=== PATIENT | female | born 1950 | race Caucasian/White ===

== ENCOUNTER 2018-02-22 02:32 | Inpatient (IN) ==
[2018-02-22 03:07] LABS: Basophils % 0.3 %; Eosinophils # 0.1 K/mcL (0.0-0.6); Eosinophils % 0.7 %; Hematocrit 43.2 % (35.3-44.9); Hemoglobin 14.9 g/dL (11.5-15.4); Immature Granulocytes % 0.3 % (0-4); Lymphocytes # 1.9 K/mcL (0.6-4.6); Lymphocytes % 16.3 %; Mean Corpuscular HGB Conc 34.5 g/dL (31.6-35.5); Mean Corpuscular Hemoglobin 28.8 pg (28.0-33.3); Mean Corpuscular Volume 83.4 fL (83.0-100.0); Mean Platelet Volume 11.5 fL (9.4-12.4); Monocytes # 0.7 K/mcL (0.0-1.3); Monocytes % 5.8 %; Neutrophils # 8.9 K/mcL (1.6-8.9); Platelet Count 324 K/mcL (140-400); Red Blood Count 5.18 M/mcL (3.82-4.97); Red Cell Distribution Width 12.3 % (11.5-14.5); Segmented Neutrophils % 76.6 %
[2018-02-22 03:13] LABS: Prothrombin Time 11.1 Seconds (9.4-12.1)
--- NOTE | 2018-02-22 03:22 | Emergency Department Note ---
Disposition Clinical Impression: NSTEMI (non-ST elevated myocardial infarction) Disposition: Admitted As Inpatient Condition: Fair Chest Pain HPI - General Chief Complaint: ED Chest Pain Stated Complaint: CP Time Seen by Provider: 02/22/18 03:10 Source: patient, family Limitations: no limitations Vital Signs Reviewed: Yes Nursing Notes Reviewed: Yes - History of Present Illness HPI Narrative: Mrs. Pinedo, 67-year-old female, presents from home for evaluation of chest pain. This started 3 days ago when she was laying down to go to bed. She describes a rapid beating of her heart and a weakness to her bilateral upper extremities as well as tightness in her jaw. She is not certain how long this lasted however did self resolve without intervention. This recurred last night and again recurred tonight; each time when laying in bed. She has no symptoms with activity. PMH: Hypertension, hyperlipidemia, diabetes. No history of ACS. ROS: Positive: As above Negative: Fever, chills, nausea, vomiting, dyspnea, diaphoresis, cough, abdominal pain, unusual back pain Severity scale (1-10): 2 - Related Data Home Medications Medication Instructions Recorded Confirmed Lisinopril [Zestril] 05/02/17 Previous Rx's Medication Instructions Recorded Ibuprofen [Motrin] 800 mg PO Q8HR #30 tablet 05/02/17 Tramadol HCl [Ultram] 50 mg PO TID PRN #15 tab 05/02/17 Allergies Allergy/AdvReac Type Severity Reaction Status Date / Time No Known Allergies Allergy Verified 02/22/18 02:41 All systems ED: reviewed and negative except as stated. Review of Systems: As Per HPI Chest Pain PMH - Past Medical History Medical history: Reports: diabetes, hyperlipidemia, hypertension Surgical history: Reports: no surgical history Psychiatric history: Reports: no psych history - Social History Smoking Status: Never smoker Alcohol use: Reports: none Drug use: Reports: none Physical Exam Vital Signs Reviewed General: Patient is alert, oriented, and in no acute distress. Head: atraumatic, normocephalic Eye: normal appearance, no scleral icterus, no conjunctival injection ENT: mucous membranes moist, normal external ear exam Neck: normal inspection, trachea midline, full ROM Chest: normal inspection, symmetric chest rise Respiratory: Good respiratory effort. Bilateral breath sounds are clear without wheezing, crackles, or rhonchi. Cardiovascular: Regular rate and rhythm. No clicks, rubs, gallops, or murmors. Normal heart sounds. Bilateral radial pulses 2/4 equal. Abdomen: Bowel sounds present normoactive x-4 quadrants. Abdomen is soft, nondistended, and nontender. No guarding or rebound. No organomegaly noted. Musculoskeletal: Spontaneously moving all extremities. Skin: warm, dry, intact. Neuro: Alert and oriented x4. Sensation light touch intact. Psych: Patient's affect is appropriate for situation. - General Limitations: no limitations General appearance: alert, in no apparent distress Course Course Narrative: EKG dated 02/22/18 at 02:38 interpreted as sinus rhythm with rate of 88. ID [id number] , QRS 78, QTc 401. Left axis. Nonspecific ST-T changes. No previous EKG for comparison. Chest X-Ray 02/22/18 02:44 IMPRESSION: No acute findings. D/ / Dario Cristina / Dario Cristina Interpreting Provider: Dario Cristina Vital Signs Temperature 98.2 F 02/22/18 02:41 Pulse Rate 83 02/22/18 02:41 Respiratory Rate 16 02/22/18 02:41 Blood Pressure 172/94 02/22/18 02:41 O2 Sat by Pulse Oximetry 97 02/22/18 02:41 Temperature 98.2 F 02/22/18 02:41 Pulse Rate 83 02/22/18 02:41 Respiratory Rate 16 02/22/18 02:41 Blood Pressure 172/94 02/22/18 02:41 O2 Sat by Pulse Oximetry 97 02/22/18 02:41 Oxygen Delivery Oxygen Delivery Room Air Chest Pain - Lab Data Result diagrams: 02/22/18 02:56 02/22/18 02:56 Lab Results 02/22/18 02/22/18 02/22/18 Range/Units 02:56 02:56 02:56 WBC 11.6 H (4.3-11.1) K/mcL RBC 5.18 H (3.82-4.97) M/mcL Hgb 14.9 (11.5-15.4) g/dL Hct 43.2 (35.3-44.9) % MCV 83.4 (83.0-100.0) fL MCH 28.8 (28.0-33.3) pg MCHC 34.5 (31.6-35.5) g/dL RDW 12.3 (11.5-14.5) % Plt Count 324 (140-400) K/mcL MPV 11.5 (9.4-12.4) fL Immature Gran % 0.3 (0-4) % Seg Neutrophils % 76.6 % Lymphocytes % 16.3 % Monocytes % 5.8 % Eosinophils % 0.7 % Basophils % 0.3 % Neutrophils # 8.9 (1.6-8.9) K/mcL Lymphocytes # 1.9 (0.6-4.6) K/mcL Monocytes # 0.7 (0.0-1.3) K/mcL Eosinophils # 0.1 (0.0-0.6) K/mcL Basophils # 0.0 (0.0-0.2) K/mcL PT 11.1 (9.4-12.1) Seconds INR 1.0 APTT 35.0 (26.0-36.0) Seconds Sodium 133 L (136-145) mEq/L Potassium 4.1 (3.5-5.1) mEq/L Chloride 100 (98-107) mEq/L Carbon Dioxide 18 L (23-29) mEq/L BUN 18 (8-23) mg/dL Creatinine 0.82 (0.60-1.20) mg/dL Est GFR ( Amer) > 60 (> 60) Est GFR (Non-Af Amer) > 60 (> 60) BUN/Creatinine Ratio 22 (6-26) Glucose 396 H (70-105) mg/dL Calculated Osmolality 294 (280-300) Calcium 9.4 (8.6-10.3) mg/dL Troponin I 1.41 H* (< 0.04) ng/mL Heart Score - Score History: Slightly Suspicious EKG: Non Specific repolarisation Disturbance Age: 45-65 Risk Factors: Equal/Greater than 3 risk factor or history of atherosclerotic disease Troponin: Less than normal limit HEART Score Total: 4
[2018-02-22 03:29] LABS: BUN/Creatinine Ratio 22 (6-26); Blood Urea Nitrogen 18 mg/dL (8-23); Calcium 9.4 mg/dL (8.6-10.3); Carbon Dioxide 18 mEq/L (23-29); Chloride 100 mEq/L (98-107); Glucose 396 mg/dL (70-105); Osmolality,Calculated 294 (280-300); Potassium 4.1 mEq/L (3.5-5.1); Sodium 133 mEq/L (136-145); eGFR For African Americans > 60 (> 60); eGFR For Non-African Americans > 60 (> 60)
[2018-02-22 03:31] LABS: Troponin I 1.41 ng/mL (< 0.04)
--- NOTE | 2018-02-22 03:37 | Emergency Department Note ---
Disposition Clinical Impression: NSTEMI (non-ST elevated myocardial infarction) Disposition: Admitted As Inpatient Condition: Fair Referrals: La eKnny [Primary Care Provider] - Forms: ED Satisfaction Letter General Adult HPI - General Chief complaint: ED Chest Pain Stated complaint: CP Time Seen by Provider: 02/22/18 03:10 Source: patient, family Limitations: no limitations - History of Present Illness Pain Scale: 2 - Related Data Home Medications Medication Instructions Recorded Confirmed Lisinopril [Zestril] 05/02/17 Previous Rx's Medication Instructions Recorded Ibuprofen [Motrin] 800 mg PO Q8HR #30 tablet 05/02/17 Tramadol HCl [Ultram] 50 mg PO TID PRN #15 tab 05/02/17 Allergies Allergy/AdvReac Type Severity Reaction Status Date / Time No Known Allergies Allergy Verified 02/22/18 02:41 Past Medical History - Past Medical History Medical history: Reports: diabetes, hyperlipidemia, hypertension Surgical history: Reports: no surgical history Psychiatric history: Reports: no psych history - Social History Smoking Status: Never smoker Smokeless Tobacco Status: No Alcohol use: Reports: none Drug use: Reports: none Physical Exam - General Limitations: no limitations General appearance: alert, in no apparent distress Course - Reevaluation(s) Reevaluation #1: Attestation note I examined this patient and my medical decision-making was reviewed with the emergency medicine resident. I agree with the documented findings, disposition and treatment plan as described except to the extent set forth below. Patient seen with emergency medicine resident Mukesh Ross, Please see a copy of his note for details of the H&P, ED evaluation, management and disposition. I have independently evaluated the patient and confirmed appropriate portions of the history and physical exam. Briefly: 67-year-old female comes in with chest pain that radiated into her shoulders no known prior coronary artery disease EKG shows no acute ischemic changes were troponin critically elevated 1.41 with normal BUN/creatinine consistent with an NSTEMI. Patient will be anticoagulated and admitted with cardiology consultation. Provided 45 minutes critical care service with this patient Time: 03:36 Vital Signs Temperature 98.2 F 02/22/18 02:41 Pulse Rate 83 02/22/18 02:41 Respiratory Rate 16 02/22/18 02:41 Blood Pressure 172/94 02/22/18 02:41 O2 Sat by Pulse Oximetry 97 02/22/18 02:41 Temperature 98.2 F 02/22/18 02:41 Pulse Rate 83 02/22/18 02:41 Respiratory Rate 16 02/22/18 02:41 Blood Pressure 172/94 02/22/18 02:41 O2 Sat by Pulse Oximetry 97 02/22/18 02:41 Oxygen Delivery Oxygen Delivery Room Air Medical Decision Making - Lab Data Result diagrams: 02/22/18 02:56 02/22/18 02:56 Lab Results 02/22/18 02/22/18 02/22/18 Range/Units 02:56 02:56 02:56 WBC 11.6 H (4.3-11.1) K/mcL RBC 5.18 H (3.82-4.97) M/mcL Hgb 14.9 (11.5-15.4) g/dL Hct 43.2 (35.3-44.9) % MCV 83.4 (83.0-100.0) fL MCH 28.8 (28.0-33.3) pg MCHC 34.5 (31.6-35.5) g/dL RDW 12.3 (11.5-14.5) % Plt Count 324 (140-400) K/mcL MPV 11.5 (9.4-12.4) fL Immature Gran % 0.3 (0-4) % Seg Neutrophils % 76.6 % Lymphocytes % 16.3 % Monocytes % 5.8 % Eosinophils % 0.7 % Basophils % 0.3 % Neutrophils # 8.9 (1.6-8.9) K/mcL Lymphocytes # 1.9 (0.6-4.6) K/mcL Monocytes # 0.7 (0.0-1.3) K/mcL Eosinophils # 0.1 (0.0-0.6) K/mcL Basophils # 0.0 (0.0-0.2) K/mcL PT 11.1 (9.4-12.1) Seconds INR 1.0 APTT 35.0 (26.0-36.0) Seconds Sodium 133 L (136-145) mEq/L Potassium 4.1 (3.5-5.1) mEq/L Chloride 100 (98-107) mEq/L Carbon Dioxide 18 L (23-29) mEq/L BUN 18 (8-23) mg/dL Creatinine 0.82 (0.60-1.20) mg/dL Est GFR ( Amer) > 60 (> 60) Est GFR (Non-Af Amer) > 60 (> 60) BUN/Creatinine Ratio 22 (6-26) Glucose 396 H (70-105) mg/dL Calculated Osmolality 294 (280-300) Calcium 9.4 (8.6-10.3) mg/dL Troponin I 1.41 H* (< 0.04) ng/mL
[2018-02-22] MEDS ORDERED: Aspirin 325 MG TABLET PO ONE (03:42)
[2018-02-22] MEDS ORDERED: *HR* Heparin 5,000 UNIT/ML VIAL IVP PRN ×2 (03:44)
[2018-02-22] MEDS ORDERED: *HR* Heparin 5,000 UNIT/ML VIAL IVP ONE (03:44)
[2018-02-22] MEDS ORDERED: Nitroglycerin 0.4 MG TAB.SUBL SL PRN (04:35)
[2018-02-22] MEDS ORDERED: *HR* Labetalol 20 MG/4 ML SYRINGE IVP STA (05:11)
[2018-02-22] MEDS: Heparin 25,000 UNIT/500 ML D5W 25,000 UNIT/500 ML BAG IVC SCH (05:26)
[2018-02-22] MEDS ORDERED: *HR* Dextrose 50 % in Water (Syg) 50 ML SYRINGE IVP PRN (07:47)
[2018-02-22] MEDS ORDERED: D5% in Water 1,000 ML IVC PRN (07:47)
[2018-02-22] MEDS ORDERED: Dextrose Gel 15 GM/37.5 ML TUBE PO PRN ×2 (07:47)
[2018-02-22] MEDS: Insulin LISPRO 300 UNITS/3 ML VIAL SQ SCH ×5 (08:50→23:30)
[2018-02-22] MEDS: Furosemide 20 MG TABLET PO SCH (08:53)
[2018-02-22] MEDS: amLODIPine 5 MG TABLET PO SCH (08:53)
[2018-02-22] MEDS ORDERED: Ondansetron 4 MG/2 ML VIAL IVP PRN (09:12)
[2018-02-22] MEDS ORDERED: *HR* Morphine 2 MG/ML SYRINGE IVP PRN (09:12)
--- NOTE | 2018-02-22 09:23 | Internal Med History&Physical ---
Date of Encounter: 02/22/18 Time of Encounter: 08:17 Internal Medicine - H&P: HPI Chief complaint: "Chest pain" Admitted From: Emergency Dept Plans for Post Hospital Care: Home History of present illness: Ms. Pinedo is a 67 year old female who presented to ED today with 4-day history of chest pain. She states that pain started this past Saturday when she layed down for bed at night. Pain has been intermittent since then, usually worse in bed a night. Pain is located in left to middle chest, and radiates to bilateral arms and jaw. She denies diaphoresis. She denies fever, chills, SOB , nausea, vomiting, abdominal pain, changes in bladder, or changes in bowels. She has history of Type II DM, HTN, and HLD. She denies any CAD or other cardiac history. In the ED, troponin was elevated to 1.41. EKG with non-specific changes and no ST elevation. Blood glucose was elevated to 396, but she did not have her home insulin for today. CXR showed no acute cardiopulmonary process. She was given aspirin and labetalol for HTN in ED. She was started on heparin drip. At the time of my examination, chest pain was greatly improved but still present. She has no other complaints at this time. Past Med Surg Social Fam HX - Past Medical History Attestation: Yes The following information was validated with the patient. Source: patient Medical history: diabetes, hyperlipidemia, hypertension Psychiatric history: no psych history - Past Surgical History Surgical History: no surgical history - Social History Smoking Status: Never smoker Smokeless Tobacco Status: No Alcohol use: none Drug use: none - Additional Family History Additional family history: No significant family history per patient. Internal Medicine - H&P: Meds Amlodipine Besylate 10 mg PO DAILY 02/22/18 [History] Furosemide [Lasix] 20 mg PO DAILY 02/22/18 [History] Glyburide/Metformin HCl [Glyburide-Metformin 5-500 mg] 1 tab PO BID 02/22/18 [ History] Insulin Glargine [Lantus] 15 units SQ DAILY 02/22/18 [History] Insulin Glargine [Lantus] 30 units SQ HS 02/22/18 [History] Losartan [Cozaar] 100 mg PO DAILY 02/22/18 [History] Metoprolol [Lopressor] 50 mg PO BID 02/22/18 [History] Pioglitazone HCl [Actos] 45 mg PO DAILY 02/22/18 [History] Potassium Chloride [K-Tab ER] 10 meq PO BID 02/22/18 [History] Simvastatin [Zocor] 20 mg PO HS 02/22/18 [History] 3 Allergy/AdvReac Type Severity Reaction Status Date / Time No Known Allergies Allergy Verified 02/22/18 02:41 All Systems PM: A 10-system review of systems was performed and is negative for pertinent findings except as documented above in the HPI. - Constitutional Vitals: Temp Pulse Resp BP Pulse Ox 98.2 F 88 18 172/90 97 02/22/18 02:41 02/22/18 06:39 02/22/18 06:39 02/22/18 06:39 02/22/18 06:39 General appearance: Present: cooperative, A&O X 3, pleasant, no acute distress, answers questions appropriately - Head Head exam: Present: atraumatic, normal inspection, normocephalic - Eye Eye exam: Present: EOMI, PERRL. Absent: conjunctival injection, nystagmus, scleral icterus - ENT ENT exam: Present: mucous membranes moist, normal external ear exam, normal oropharynx - Neck Neck exam general surgery: Present: supple, trachea midline. Absent: lymphadenopathy, tenderness, thyromegaly - Respiratory Respiratory exam: Present: CTAB. Absent: accessory muscle use, rales, rhonchi, wheezes Additional comments: Normal WOB - Cardiovascular Cardiovascular exam: Present: RRR, +S1, +S2. Absent: diastolic murmur, gallop, rubs, systolic murmur Additional comments: Trace BLE edema - GI/Abdominal GI/Abdominal exam: Present: normal bowel sounds, soft. Absent: distended, hepatomegaly, mass, splenomegaly, tenderness - Neurological Exam Neurological exam: Present: alert, CN II-XII intact, oriented X3, no focal deficits, strengths equal and symetr throughout. Absent: motor sensory deficit , facial droop, speech deficit - Psychiatric Psychiatric exam: Present: normal affect, normal mood. Absent: agitated, anxious, depressed - Skin Skin exam: Present: dry, intact, warm. Absent: cyanosis, rash Internal Med - H&P Results - Labs CBC & Chem 7: 02/22/18 02:56 02/22/18 02:56 - Assessment and plan (1) NSTEMI (non-ST elevated myocardial infarction) Current Visit: Yes Status: Acute Assessment and plan: Admit to inpatient with telemetry. Cardiology consulted; appreciate input. Trend troponin x 3. Continue heparin drip. Continue aspirin QD. Continue supplemental O2, tylenol, and IV morphine PRN. Continue SL nitro PRN. Continue home HTN and HLD medications as per below. Obtain ECHO. Check lipid panel as per below. Keep NPO until cardiology decides on intervention. Repeat labwork in AM. (2) Type 2 diabetes mellitus with hyperglycemia Current Visit: Yes Status: Acute Assessment and plan: Start accuchecks and high dose SSI Q4H. Add back home long-acting insulin after on diet. 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 Qualifiers: Hypertension type: essential hypertension Qualified Code(s): I10 - Essential (primary) hypertension (4) HLD (hyperlipidemia) Current Visit: Yes Status: Chronic Assessment and plan: Recheck lipid panel. Continue home medications. Qualifiers: Hyperlipidemia type: mixed hyperlipidemia Qualified Code(s): E78.2 - Mixed hyperlipidemia (5) DVT prophylaxis Current Visit: Yes Status: Acute Assessment and plan: Continue heparin drip as per above and start SCDs. - Time Spent With Patient Total time spent is greater than 50% in coordination of care (as documented) at patient's floor/unit and/or counseling patient: less than 15 minutes
[2018-02-22 09:41] LABS: Troponin I 2.68 ng/mL (< 0.04)
[2018-02-22] MEDS ORDERED: Heparin 1,000 UNITS/500 mL 500 ML ONE (10:32)
[2018-02-22] MEDS ORDERED: ISOVUE-370 200 ML INFUS..BTL IV ONE (10:32)
[2018-02-22] MEDS ORDERED: 0.9 % Sodium Chloride 1,000 ML ONE ×2 (10:32→10:41)
[2018-02-22] MEDS ORDERED: *HR* Heparin 10,000 UNIT/10 ML VIAL ONE (10:32)
[2018-02-22] MEDS ORDERED: Nitroglycerin 1,000 MCG/10 ML VIAL IV ONE (10:33)
--- NOTE | 2018-02-22 10:53 | Pre-Sedation Evaluation ---
Pre-sedation evaluation - Pre-sedation checklist Date of procedure: 02/22/18 Procedure: C Recent Vitals: Last Vital Signs Temp 98.2 F 02/22/18 02:41 Pulse 88 02/22/18 06:39 Resp 18 02/22/18 06:39 BP 172/90 02/22/18 06:39 Pulse Ox 97 02/22/18 06:39 H&P (including ROS) documented in medical record: Yes Dietary Status: NPO after Midnight ASA Classification *see protocol: CLASS II-Mild systemic disease, CLASS III- Severe systemic disease
--- NOTE | 2018-02-22 10:56 | Cardiology Consult Note ---
Date of Encounter: 02/22/18 Time of Encounter: 10:54 Assessment and Plan (1) NSTEMI (non-ST elevated myocardial infarction) Current Visit: Yes Status: Acute NSTEMI, R/B/A of a [facility] d/w patient and she agrees to proceed. Discussion w patient/family: The assessment and plan as outlined above was discussed with the patient and/or family members who expressed understanding and agreement. All questions were answered. Thank you for involving us in the care of your patient. Please call with any questions. History of Present Illness Consult date: 02/22/18 Consult reason: NSTEMI Chief complaint: Chest Pain History of present illness: Ms. Pinedo is a 67 year old female with h/o DM, HTN complains of typical chest pain RSCP, heavy recently with exertion radiating to UE's and jaw found to have an elevated troponin. Currently chest pain free doing well on IV heparin. EKG with ST changes Past Med Surg Social Fam HX - Past Medical History Medical history: diabetes, hyperlipidemia, hypertension Psychiatric history: no psych history - Past Surgical History Surgical History: no surgical history - Social History Smoking Status: Never smoker Smokeless Tobacco Status: No Alcohol use: none Drug use: none Medications and Allergies Furosemide [Lasix] 20 mg PO DAILY 02/22/18 [History] Glyburide/Metformin HCl [Glyburide-Metformin 5-500 mg] 1 tab PO BID 02/22/18 [ History] Insulin Glargine [Lantus] 15 units SQ DAILY 02/22/18 [History] Insulin Glargine [Lantus] 30 units SQ HS 02/22/18 [History] Losartan [Cozaar] 100 mg PO DAILY 02/22/18 [History] Metoprolol Succinate [Toprol Xl] 50 mg PO BID 02/22/18 [History] Pioglitazone HCl [Actos] 45 mg PO DAILY 02/22/18 [History] Potassium Chloride [K-Tab ER] 10 meq PO BID 02/22/18 [History] Simvastatin [Zocor] 20 mg PO HS 02/22/18 [History] amLODIPine [Norvasc] 5 mg PO DAILY 02/22/18 [History] 3 Allergy/AdvReac Type Severity Reaction Status Date / Time No Known Allergies Allergy Verified 02/22/18 02:41 All Systems Review: The remainder of the systems were reviewed and are negative Physical Examination General: Conversant, No Apparent Distress HEENT: Atraumatic, Normocephaly, Mucus Membranes Moist Neck: No JVD, Normal carotid pulses Cardiac: Reg Rate and Rhythm, Normal S1 and S2, No Murmur Lungs: Normal Breath Sounds, No Wheeze, Rales, Rhonchi Neuro: Alert and responsive, No focal deficits noted Abdomen: Soft, Non-Tender Skin: No rashes noted on visualized skin Musculoskeletal: No Chest Wall Tenderness Extremities: No Clubbing, No Cyanosis, No Edema, Normal Pulses Results 02/22/18 02:56 02/22/18 02:56 Lab Results 02/22/18 08:58 Troponin I 2.68 H* Consult Discharge Plan - Plan Referrals: La Kenny [Primary Care Provider] -
[2018-02-22] MEDS ORDERED: *HR* Midazolam HCl 2 MG/2 ML VIAL ONE (11:04)
[2018-02-22] MEDS ORDERED: *HR* FentaNYL (PF) 100 MCG/2 ML VIAL ONE (11:04)
[2018-02-22] MEDS ORDERED: Nitroglycerin Spray 4.9 GM BOTTLE ONE (11:48)
[2018-02-22 11:54] LABS: Estimated Average Glucose 235 mg/dl; Hemoglobin A1C 9.8 %
--- NOTE | 2018-02-22 12:05 | Invasive Diagnostic Lab Proc ---
Name: Randi Pinedo Date of Study: 02/22/2018 Date: 1950 Ht: 70.1in Medical Record#: [id number] Age: 67 Wt: 227.96lb Gender: Female BSA: 2.21 Order #: [id number] BMI: 32.63 Physicians Procedure Physician: Amee Alexander MD Referring MD: Referring MD: Staff Name Position [facility] Monitor 11:01 AM Nicky Liang RN Labeling Specialist 11:02 AM Fadia Schuster RN Labeling Specialist 11:02 AM Felicia Scruggs RT (R) Scrub 11:02 AM Indications Indication Non-Stemi Procedures Performed Procedure L HRT ARTERY/VENTRICLE ANGIO Pre-Procedure Checklist Informed consent is complete signed and on chart. H&P is on chart. ID band is on and ID verified with patient. Patient NPO for procedure The procedure was described for the patient and questions were answered. Blood Pressure: 172/90 ECG is on chart. Rhythm: NSR Plan of Care Patient will tolerate the procedure without complications. Adequate level of comfort will be maintained. Hemodynamics will remain stable Patient will recover from procedure without complications. Respiratory function will be maintained. Cardiac rhythm will remain stable. Patient temperature will be maintained. Patient and/or family have verbalized understanding of the procedure. Patient Education Chief Complaint/Reason for Test: Cardiac Cath Developmental Category: Geriatric (65+ years) Developmentally Appropriate for Age: Yes Learning Barriers: None Education Needs: Procedure Education Method: Verbal Information Taught: Cardiac Cath Educational Evaluation: Able to repeat information Intravenous Access Time IV Size Location DC'd Fluid/Drip Rate Units RN 10:47 AM 20g 1 /" Patent On Arrival Lt Antecubital 0.9NaCl 25 ml/hr Nicky Liang RN Allergies No Known Allergies Vital Signs Time BP (mmHg) HR (bpm) O2 Sat. RR (bpm) LOC 10:49 AM 172 / 90 88 97 % 18 5 = Fully awake and oriented or at pre-proc level 11:02 AM / % 4 = Oriented but drowsy 11:02 AM / % 4 = Oriented but drowsy 11:17 AM / % 4 = Oriented but drowsy 11:32 AM / % 4 = Oriented but drowsy 11:08 AM 163 / 84 77 96 % 11:12 AM 158 / 84 74 92 % 11:17 AM 150 / 78 73 92 % 11:22 AM 154 / 75 73 94 % 11:27 AM 155 / 76 74 93 % 11:32 AM 154 / 78 73 94 % 11:37 AM 158 / 79 72 93 % 11:42 AM 157 / 81 72 93 % 11:47 AM 154 / 82 72 94 % Procedural Medications Time Medication Dose Units Method Given By 11:02 AM Oxygen 2 L/min nasal cannula Nicky Liang RN 11:08 AM Versed 1 mg Intravenous Nicky Liang RN 11:08 AM Fentanyl 50 mcg Intravenous Nicky Liang RN 11:14 AM Lidocaine 2% 20 ml Subcutaneous Amee Alexander MD 11:49 AM Nitroglycerin 400 mcg Sublingual Nicky Liang RN 11:50 AM Versed 0.5 mg Intravenous Nicky Liang RN 11:50 AM Fentanyl 25 mcg Intravenous Nicky Liang RN ASA Classification: CLASS II- Mild systemic disease (i.e. well-controlled diabetes, hypertension, asthma, cigarette smoking) Sheila Score Preprocedure Postprocedure Activity 2- Moves 4 extremities sustained head lift Activity 2- Moves 4 extremities sustained head lift Circulation 2- SBP +/= 20 points of pre-anesthetic level Circulation 2- SBP +/= 20 points of pre-anesthetic level Consciousness 2- Awake and alert oriented x 3 Consciousness 2- Awake and alert oriented x 3 O2 Saturation 2- Able to maintain O2 satruation of 92% on room air O2 Saturation 2- Able to maintain O2 satruation of 92% on room air Respiratory 2- Able to deep breathe and cough well Respiratory 2- Able to deep breathe and cough well Total Score 10 Total Score 10 Contrast Agent: Isovue Diagnostic Contrast: 66 ml Total Contrast: 66 ml Fluoro Dose: 374 mGy Activated Clotting Time Time Seconds to Clot 11:23 AM 148 Procedure Log Time Note Enter By 10:44 AM CathStat 11:01 AM Pt arrived to laboratory sample carrier 2 at 11:01 [facility] 11:01 AM Physician arrived 11:01 11:01 AM Meet and greet completed 11:01 AM Sign in performed according to hospital policy. 11:01 AM Procedure start 11:01 11:01 AM Patient charges- Angio tray pack, Navilyst 3mm J, Pulse Oximetry and ACIST tubing and transducer [facility] 11:02 AM Ashely Mckeon RN Position: Monitor Time in: 11:[facility] 11:02 AM Nicky Liang RN Position: Labeling Specialist Time in: :[facility] 11: AM Fadia Schuster RN Position: Labeling Specialist Time in: :[facility] 11:02 AM Felicia Scruggs RT (R) Position: Scrub Time in: :[facility] 11: AM Hair removed from procedure site in procedure lab using clippers. Bilateral groin prepped with Chloraprep by Felicia Scruggs RT (R), then patient was draped. Skin intact. [facility] 11: AM Time: : Oxygen on at 2 L/min per nasal cannula by Nicky Liang RN [facility] 11: AM Time: : Patient comfortable and pain free: Yes [facility] 11: AM Time: :LOC: 4 = Oriented but drowsy [facility] 11:03 AM Clinical Presentation: Non-STEMI [facility] 11:06 AM Recorded ECG: HR=76 Condition=Condition 1 11:06 AM Vitals capture started with the following parameters, Patient=Adult, Interval=5 min, Initial Emqbojln=073 mmHg, Deflation Rate=5 mmHg, Cuff placed on Right Arm 11:07 AM Heparin drip turned off in patient's room prior to laborer demolition [facility] 11:08 AM HR=77 bpm, BWRO=016/84 mmhg, SpO2=96.0 % 11:08 AM ASA Class CLASS II- Mild systemic disease (i.e. well-controlled diabetes, hypertension, asthma, cigarette smoking) [facility] 11:08 AM Time: :08 Versed 1 mg Intravenous Given by Nicky Liang RN [facility] 11:08 AM Time: :08 Fentanyl 50 mcg Intravenous Given by Nicky Liang RN [facility] 11:10 AM Pressure channel 1 zeroed. 11:12 AM HR=74 bpm, GYJJ=681/84 mmhg, SpO2=92.0 %, Comment=NSR 11:13 AM Time out performed according to hospital policy [facility] 11:16 AM Time: 11:14 20 ml Lidocaine 2% to right groin Subcutaneous Given by [facility] AM Micro-Introducer Kit utilized for sheath placement [facility] 11:17 AM HR=73 bpm, FXNC=062/78 mmhg, SpO2=92.0 %, Comment=NSR 11:17 AM Time: 11:02 Patient comfortable and pain free: Yes [facility] 11:17 AM Time: 11:02LOC: 4 = Oriented but drowsy [facility] 11:17 AM Access obtained by percutaneous puncture. 6Fr 10cm Terumo [place] sheath placed in right Femoral artery. [id number] [facility] 11:18 AM 0.035 145cm Navilyst 3mmJ wire [id number] [facility] 11:18 AM 5Fr FR 4 catheter inserted over the wire [facility] 11:18 AM wire removed [facility] 11:18 AM RCA angiography performed in multiple views. [facility] 11:19 AM Recorded Pressure: Ao, HR=72, Condition=Condition 1 (Aorta) Ao 137/81/107 11:19 AM Coronary Dominance: right [facility] 11:20 AM Catheter removed [facility] 11:20 AM 5Fr FL 4 catheter inserted over the wire [facility] 11:20 AM ACT being drawn [facility] 11:20 AM LCA angiography performed in multiple views. [facility] 11:22 AM Recorded Pressure: Ao, HR=74, Condition=Condition 1 (Aorta) Ao 137/74/102 11:22 AM HR=73 bpm, QZXB=336/75 mmhg, SpO2=94.0 %, Comment=NSR 11:23 AM At 11:23 the ACT was 148 seconds. [facility] 11:24 AM [facility] for Cardiothoracic surgeon [facility] 11:25 AM Recorded Pressure: LV, HR=74, Condition=Condition 1 (Left Ventricle) LV 150/13/19 11:25 AM Catheter removed [facility] 11:25 AM 5Fr Pigtail catheter inserted over the wire [facility] 11:25 AM Catheter selectively placed in left ventricle [facility] 11:25 AM Bolus angiogram of left Ventricle complete: 10 ml/sec for a total of 20 mls [facility] 11:26 AM Recorded Pressure: LV, Ao, HR=74, Condition=Condition 1 (Left Ventricle) LV 153/16/19, (Aorta) Ao 148/65/102 11:26 AM Catheter removed [facility] 11:27 AM HR=74 bpm, RKZV=624/76 mmhg, SpO2=93.0 %, Comment=NSR 11:31 AM Lesion found in Proximal LAD. Pre Stenosis: 99 Pre NANCY Flow: [facility]ers 11:31 AM Lesion found in Mid LAD. Pre Stenosis: 99 Pre NANCY Flow: [facility] 11:31 AM Lesion found in 1st Diagonal. Pre Stenosis: 99 Pre NANCY Flow: [facility]ers 11:31 AM Lesion found in 1st Marginal. Pre Stenosis: 70 Pre NANCY Flow: tsoummers 11:31 AM Lesion found in Right PDA. Pre Stenosis: 90 Pre NANCY Flow: tsoummers 11:31 AM Proximal Left Anterior Descending Coronary Artery with 99% stenosis. If graft is supplying this territory, 0 % stenosis. [facility] 11:31 AM Mid/Distal Left Anterior Descending Coronary Artery and diagonal branches with 99% stenosis. If graft is supplying this area, 0 % stenosis [facility] 11:32 AM Circumflex, Obtuse Marginal, Left Posterior Descending, and Left Posterolateral Coronary Arteries with 70 % stenosis. If graft is supplying this area, 0 % stenosis [facility] 11:32 AM Right Coronary, Right Posterior Descending Arteries with Right Posterolateral and Acute Marginal branches with 90 % stenosis. If graft is supplying this area, 0 % stenosis [facility] 11:32 AM HR=73 bpm, GZYV=589/78 mmhg, SpO2=94.0 %, Comment=NSR 11:32 AM Time: 11:17 Patient comfortable and pain free: Yes [facility] 11:32 AM Time: 11:17LOC: 4 = Oriented but drowsy [facility] 11:[address] surgeon to respond [facility] 11:37 AM HR=72 bpm, IECN=197/79 mmhg, SpO2=93.0 %, Comment=NSR 11:40 AM Spoke with paging center again to page deckhand sponge boat physician again. [facility] 11[facility]42 AM Conversation between Interventionalist and CT Surgeon- Dr. Munoz at this time. [facility] 11:42 AM HR=72 bpm, UTRL=707/81 mmhg, SpO2=93.0 %, Comment=NSR 11:43 AM Procedure completed at 11:43 [facility] 11:43 AM Did you address NANCY flow and Dominance? Yes [facility] 11:43 AM Sign out completed: Radiation Dose 374.33 mGy Fluoro Time: 1.7 Isovue 370 - 200ml contrast 66 ml given by Amee Alexander MD. Complications: NoneCardiac Rehab Consult needed: NoConfirmed administered medications: Yes [facility] 11:44 AM Isovue 370 - 200ml,1 Bottle(s) used. [facility] 11:44 AM Estimated Blood Loss: minimal [facility] 11:44 AM Post ECG NSR [facility] 11:44 AM Post Blood Pressure 157/81 [facility] 11:44 AM Information taught Cardiac Cath [facility] 11:44 AM Education needs Procedure, Plan of Care, and Responsibilities of Patient in Care [facility] 11:44 AM 11:44 Post Pulses Bilateral DP & PT 2+ [facility] 11:45 AM Arterial sheath pulled using manual compression and V+ Pad for 15 minutes by Brian Alexander MD [facility] 11:45 AM Learning barriers :None [facility] 11:45 AM Education Methods Verbal [facility] 11:45 AM Education evaluation Able to repeat information [facility] 11:45 AM Plavix, Effient or Brilinta given No [facility] 11:45 AM Delay to floor No [facility] 11:45 AM Complications: None [facility] 11:45 AM No family present at this time [facility] 11:45 AM Fluoro Time: 1.7 [facility] 11:45 AM Isovue 370 - 200ml contrast [address] Alexander. [facility] 11:45 AM Radiation Dose 374.33 mGy [facility] 11:47 AM Report given to Iftikhar ADAMS Pt taken to E Room #16. 11:47 [facility] 11:47 AM HR=72 bpm, KGAP=711/82 mmhg, SpO2=94.0 %, Comment=NSR 11:47 AM Time: 11:32 Patient comfortable and pain free: Yes [facility] 11:48 AM Time: 11:32LOC: 4 = Oriented but drowsy [facility]mm 11:49 AM Time: 11:49 Nitroglycerin 400 mcg Sublingual Given by Nicky Liang RN 11:50 AM Time: 11:50 Versed 0.5 mg Intravenous Given by Nicky Liang RN 11:50 AM Time: 11:50 Fentanyl 25 mcg Intravenous Given by Nicky Liang RN 12:00 PM Site status No bleeding/hematoma - Rt Groin as reported by Felicia Scruggs RT (R) at 12:00 [facility] PM Opsite applied [facility] 12:00 PM Patient out of room: 12:00 [facility] Complications Complication None Hemodynamics Pressures Site Systolic/A Wave Diastolic/V Wave Mean AO 137 81 107 AO 137 74 102 LV 150 13 19 LV 153 16 19 AO 148 65 102 Post Procedure Information Blood Pressure: 157/81 mmHg Rhythm: NSR Post procedural instructions were given Closure Device Time Device Success/Fail 02/22/2018 11:47:00 AM Manual Compression Successful Site Checks Time Location Status Staff Sheath In? Note 12:00 PM Rt Groin No bleeding/hematoma Felicia Scruggs RT (R) Pulses Time Site Pre-Procedure Post-Procedure Note 02/22/2018 10:47:00 AM Bilateral DP & PT 2+ 11:44:00 AM Bilateral DP & PT 2+ Updated by Ashely Mckeon RN on 02/22/2018 12:00:26 PM electronically signed on 02/22/2018 12:00:53 PM with status of Final
--- NOTE | 2018-02-22 14:03 | Cardiothoracic Consult Note ---
Date of Encounter: 02/22/18 Time of Encounter: 13:59 Assessment and Plan (1) NSTEMI (non-ST elevated myocardial infarction) Current Visit: Yes Status: Acute The assessment and plan as outlined above was discussed with the patient and/or family members who expressed understanding and agreement. All questions were answered. The patient has diabetes with triple-vessel disease. I discussed the options of triple-vessel PTCA versus open heart surgery. She prefers open heart surgery. Operative consent was obtained. Risks of surgery include , infection, stroke, bleeding, myocardial infarction, clots around the heart, renal or respiratory failure, deep venous thrombosis or pulmonary embolism, acute or chronic graft closure, phrenic nerve injury and sternal dehiscence. The procedure, its risks, benefits and alternatives were explained and she does wish to proceed. At this point, she has no questions. We will schedule her for early tomorrow morning. Presently, she is chest pain-free. This will allow her to recover slightly from her myocardial infarction and to get the dye out of her system. - History of Present Illness Consult date: 02/22/18 History of present illness: Ms. Pinedo is a 67 year old female The patient is a 67-year-old female who presented with a 3-4 day history of chest pain. She did have a positive troponin which has gone up to 2.68. She has been having some shortness of breath, but no chest pain prior to 3-4 days ago. Cardiac catheterization revealed good ventricular function. She has triple vessel disease. There is a 90% proximal LAD lesion with a good distal vessel. There is a 70% circumflex lesion with a good distal vessel. There is a 90% block in the posterior descending branch in the midportion with a small, but probably bypassable distal vessel. Past medical history is notable for diabetes on insulin and pills. She also has hypertension and hyperlipidemia. She recently fractured her right fibula. Social history. She lives in [facility] and with her . She does not smoke and does not drink. Family history is notable for a father who had open heart surgery in a brother who had stents. Review of systems is negative for stroke or TIA. Negative for varicose veins or vein strippings. Past Med Surg Social Fam HX - Past Medical History Medical history: diabetes, hyperlipidemia, hypertension Psychiatric history: no psych history - Past Surgical History Surgical History: no surgical history - Social History Smoking Status: Never smoker Smokeless Tobacco Status: No Alcohol use: none Drug use: none Medications and Allergies Furosemide [Lasix] 20 mg PO DAILY 02/22/18 [History] Glyburide/Metformin HCl [Glyburide-Metformin 5-500 mg] 1 tab PO BID 02/22/18 [ History] Insulin Glargine [Lantus] 15 units SQ DAILY 02/22/18 [History] Insulin Glargine [Lantus] 30 units SQ HS 02/22/18 [History] Losartan [Cozaar] 100 mg PO DAILY 02/22/18 [History] Metoprolol Succinate [Toprol Xl] 50 mg PO BID 02/22/18 [History] Pioglitazone HCl [Actos] 45 mg PO DAILY 02/22/18 [History] Potassium Chloride [K-Tab ER] 10 meq PO BID 02/22/18 [History] Simvastatin [Zocor] 20 mg PO HS 02/22/18 [History] amLODIPine [Norvasc] 5 mg PO DAILY 02/22/18 [History] 3 Allergy/AdvReac Type Severity Reaction Status Date / Time No Known Allergies Allergy Verified 02/22/18 02:41 All Systems Review: The remainder of the systems were reviewed and are negative Physical Examination Vital Signs, Last 4 Hours Pulse Resp BP Pulse Ox 02/22/18 10:53 78 18 183/92 96 Pupils are equal, round and reactive to light and accommodation. She is status post left cataract surgery. No oral lesions. Neck is supple. Trachea in the midline. No thyromegaly or carotid bruits. Lungs are clear to percussion and auscultation. Heart is in a regular rate and rhythm. No murmurs, gallops or rubs. Abdomen is benign. No tenderness, rebound or guarding. Extremities have slight pretibial edema, worse on the right. Cranial nerves, motor and sensory intact. Results 02/22/18 02:56 02/22/18 02:56 Lab Results, Last 24 hours 02/22/18 02/22/18 08:58 13:03 APTT 33.7 Troponin I 2.68 H* Consult Discharge Plan - Plan Referrals: La Kenny [Primary Care Provider] -
[2018-02-22 15:47] LABS: Chol/HDL Ratio 2.3 (0-4.9)
[2018-02-22 21:08] LABS: Bilirubin,Urine Negative (Negative); Blood,Urine Trace (Negative); Clarity,Urine Cloudy (Clear); Color,Urine Yellow (Yellow); Glucose,Urine (UA) >=1000 mg/dL (Normal); Ketones,Urine Negative (Negative); Leukocyte Esterase,Urine Small (Negative); Nitrite,Urine Positive (Negative); Protein,Urine Negative (Neg-Trace); Specific Gravity,Urine > 1.030 (1.010-1.025); Urobilinogen,Urine Normal (Normal)
[2018-02-22 21:11] LABS: Bacteria,Urine Many per hpf (None-Few); Hyaline Casts,Urine None Seen per lpf (None-Few); RBC,Urine 0-3 per hpf (0-3); Squamous Epithelial Cell,Urine None Seen per lpf (None-Few); WBC,Urine 15-30 per hpf (0-3)
[2018-02-22] MEDS: Chlorhexidine Rinse 15 ML MOUTHWASH MM SCH (21:11)
[2018-02-22] MEDS ORDERED: Insulin LISPRO 300 UNITS/3 ML VIAL SQ ONE (22:29)
[2018-02-23] MEDS: Chlorhexidine Rinse 15 ML MOUTHWASH MM SCH ×2 (05:51→20:02)
[2018-02-23 05:59] LABS: Basophils % 0.4 %; Eosinophils # 0.1 K/mcL (0.0-0.6); Eosinophils % 1.1 %; Immature Granulocytes % 0.4 % (0-4); Lymphocytes # 2.1 K/mcL (0.6-4.6); Lymphocytes % 24.6 %; Mean Corpuscular HGB Conc 34.6 g/dL (31.6-35.5); Mean Corpuscular Hemoglobin 28.6 pg (28.0-33.3); Mean Corpuscular Volume 82.8 fL (83.0-100.0); Mean Platelet Volume 11.4 fL (9.4-12.4); Monocytes # 0.6 K/mcL (0.0-1.3); Monocytes % 7.5 %; Neutrophils # 5.6 K/mcL (1.6-8.9); Platelet Count 254 K/mcL (140-400); Red Blood Count 4.47 M/mcL (3.82-4.97); Red Cell Distribution Width 12.5 % (11.5-14.5)
[2018-02-23 06:00] LABS: BUN/Creatinine Ratio 17 (6-26); Blood Urea Nitrogen 12 mg/dL (8-23); Calcium 8.8 mg/dL (8.6-10.3); Carbon Dioxide 26 mEq/L (23-29); Chloride 102 mEq/L (98-107); Chol/HDL Ratio 3.2 (0-4.9); Cholesterol 132 mg/dL (< 200); Glucose 226 mg/dL (70-105); HDL Cholesterol 41 mg/dL (40-59); LDL Cholesterol,Calculated 61 mg/dL (0-99); Osmolality,Calculated 287 (280-300); Potassium 3.7 mEq/L (3.5-5.1); Sodium 135 mEq/L (136-145); Triglycerides 152 mg/dL (< 150); eGFR For African Americans > 60 (> 60); eGFR For Non-African Americans > 60 (> 60)
[2018-02-23] MEDS ORDERED: Dextrose 50 % in Water (Vial) 30 ML, Sodium Bicarbonate 20 MEQ, Lidocaine 1% 5 ML, Insu... TH SCH (06:00)
[2018-02-23] MEDS ORDERED: Insulin Human Regular 100 UNIT in 0.9 % Sodium Chloride 100 ML IV PRN (06:00)
[2018-02-23] MEDS ORDERED: CeFAZolin Syr 2,000MG/20 ML 2,000 MG/20 ML SYRINGE IVPB ONE (06:00)
[2018-02-23] MEDS ORDERED: Dextrose 50 % in Water (Vial) 30 ML, Sodium Bicarbonate 20 MEQ, Potassium Chloride 15 M... TH ONE (06:00)
[2018-02-23] MEDS ORDERED: Aspirin 81 MG TAB.CHEW PO ONE (06:00)
[2018-02-23] MEDS ORDERED: Norepinephrine 4 MG in D5% in Water 250 ML IVC PRN (06:00)
[2018-02-23 06:06] LABS: Hemoglobin 12.8 g/dL (11.5-15.4)
[2018-02-23] MEDS: Insulin LISPRO 300 UNITS/3 ML VIAL SQ SCH ×2 (06:08→07:44)
[2018-02-23] MEDS ORDERED: *HR* FentaNYL (PF) 1,000 MCG/20 ML VIAL ONE (07:41)
[2018-02-23] MEDS ORDERED: *HR* Midazolam HCl 5 MG/5 ML VIAL IVP ONE (07:41)
[2018-02-23] MEDS ORDERED: *HR* Rocuronium Bromide 50 MG/5 ML VIAL ONE ×3 (07:44→12:28)
[2018-02-23] MEDS ORDERED: *HR* Propofol 200 MG/20 ML VIAL IVP ONE (07:44)
[2018-02-23] MEDS ORDERED: Lidocaine 2% Syringe 100 MG/5 ML ONE (07:45)
[2018-02-23] MEDS ORDERED: Verapamil 5 MG/2 ML VIAL ONE (07:53)
[2018-02-23] MEDS ORDERED: *HR* Magnesium Sulfate 1 GM/2 ML VIAL ONE (07:54)
[2018-02-23] MEDS ORDERED: Tranexamic Acid 1,000 MG/10 ML VIAL ONE (07:54)
[2018-02-23] MEDS: Aspirin 81 MG TAB.CHEW PO SCH (07:56)
[2018-02-23] MEDS: amLODIPine 5 MG TABLET PO SCH (07:56)
[2018-02-23] MEDS ORDERED: Nitroglycerin 25 MG/250 ML INFUS..BTL IVC ONE ×2 (07:56→12:53)
[2018-02-23] MEDS: Furosemide 20 MG TABLET PO SCH (07:56)
--- NOTE | 2018-02-23 08:09 | Event Note ---
Date of Encounter: 02/23/18 Time of Encounter: 08:07 The patient has had no chest pain and no angina overnight. She did have 15-30 white blood cells in her urine and does have mild dysuria. We will order a urine culture. We will start her on Septra double strength as well as give her perioperative Ancef. We will not postpone the surgery as she has a proximal 99 % LAD lesion. The patient and her family have no questions concerning the surgery.
--- NOTE | 2018-02-23 08:12 | Anesthesia Evaluation PreOp ---
Date of Encounter: 02/23/18 Time of Encounter: 08:10 - Past History Planned Operation: CABG Cardiac History: [place] (NSTEMI), Angina, HTN, Hyperlipidemia Pulmonary History: Denies Any Significant HX CHIEF II DISPATCHER History: Denies Any Significant HX Other Medical History: Diabetes Type II, GERD Anesthesia History: No Prior Anesthetic Complications, Past Anesthesia ( cholecystectomy) Alcohol Use: none Drug use: none Medications and Allergies Furosemide [Lasix] 20 mg PO DAILY 02/22/18 [History] Glyburide/Metformin HCl [Glyburide-Metformin 5-500 mg] 1 tab PO BID 02/22/18 [ History] Insulin Glargine [Lantus] 15 units SQ DAILY 02/22/18 [History] Insulin Glargine [Lantus] 30 units SQ HS 02/22/18 [History] Losartan [Cozaar] 100 mg PO DAILY 02/22/18 [History] Metoprolol Succinate [Toprol Xl] 50 mg PO BID 02/22/18 [History] Pioglitazone HCl [Actos] 45 mg PO DAILY 02/22/18 [History] Potassium Chloride [K-Tab ER] 10 meq PO BID 02/22/18 [History] Simvastatin [Zocor] 20 mg PO HS 02/22/18 [History] amLODIPine [Norvasc] 5 mg PO DAILY 02/22/18 [History] 3 Allergy/AdvReac Type Severity Reaction Status Date / Time No Known Allergies Allergy Verified 02/22/18 02:41 - Meds/Allergy Pre-op Review Medications Reviewed: Yes Allergies Reviewed: Yes Beta Blockers on Current Med List: Yes (metoprolol) If Beta Blockers taken, Date/Time (Last Dose taken): 02/23/2018 0550 Anesthesia Results - Labs 02/23/18 05:25 02/23/18 05:25 - Imaging Additional studies: [facility] 02/22/2018 Lesion Findings/Interventions * Left Main Coronary Artery The LMCA is angiographically free of disease. * Left Anterior Descending There is a 99% stenosis in the Proximal LAD. There is a 99% stenosis in the Mid LAD. There is a 99% stenosis in the 1st Diagonal. * Circumflex There is a 70% stenosis in the 1st Marginal. * Ramus The Ramus is angiographically free of disease. * Right Coronary Artery There is a 90% stenosis in the Right PDA. The left ventricle is normal and has normal contractility EF 60% Anesthesia Exam Vital Signs/O2 Sat/Glucose, Most Recent Temp Pulse Resp BP Pulse Ox 98.1 F 76 17 156/79 96 02/23/18 04:36 02/23/18 06:34 02/23/18 06:34 02/23/18 06:34 02/23/18 06:34 Blood Glucose* 242 - HEENT Pupil (Motor): Pupils equal Mallampati: III Teeth: Normal Oral Opening: Greater than 3 - CHIEF II DISPATCHER CHIEF II DISPATCHER Motor: Normal RUE, Normal LUE, Normal RLE, Normal LLE, Normal Face CHIEF II DISPATCHER Sensory: Normal: RUE, LUE, RLE, LLE, Face - Cardiac Rhythm: Regular Murmur: None - Pulmonary Breath Sounds: bilateral Clear Respiratory Effort: Symmetrical Anesthesia Assess/Plan ASA Score: 4 Modified Logan Scale for Level of Consciousness: Cooperative, oriented, and tranquil Anesthetic Plan: General Monitoring Plan: Standard Monitors, A-Line, CVC, PAC, HERNAN Recovery Plan: ICU
[2018-02-23] MEDS ORDERED: *HR* Heparin 10,000 UNIT/10 ML VIAL IV ONE (08:47)
[2018-02-23] MEDS ORDERED: Tranexamic Acid 1,000 MG/10 ML VIAL IVPB ONE (08:47)
[2018-02-23] MEDS ORDERED: Albumin Human 25% 25 GM/100 ML IV.SOLN IV ONE (08:47)
[2018-02-23] MEDS ORDERED: *HR* Phenylephrine 10 MG/ML VIAL IVC ONE (08:47)
[2018-02-23] MEDS ORDERED: Mannitol 25% vial 12.5 GM/50 ML VIAL IVP ONE (08:47)
[2018-02-23] MEDS ORDERED: Sodium Bicarbonate 50 MEQ/50 ML VIAL IVC ONE (08:47)
[2018-02-23] MEDS ORDERED: Lidocaine 2% Syringe 100 MG/5 ML IV ONE (08:47)
[2018-02-23] MEDS ORDERED: *HR* Magnesium Sulfate 2 GM/50 ML PIGGYBACK IVPB ONE (08:47)
[2018-02-23 09:23] LABS: ABG Base Excess -1 mEq/L (-2 to 3); ABG Chloride 103 mEq/L (98-107); ABG Glucose 237 mg/dL (60-95); ABG HCO3 25 mEq/L (21-27); ABG Ionized Calcium 1.08 mmol/L (1.15-1.35); ABG Oxygen Saturation 99 % (95-98); ABG PCO2 45 mmHg (35-45); ABG PH 7.35 pH Units (7.32-7.45); ABG PO2 153 mmHg (85-104); ABG TCO2 26 mEq/L (20-26)
[2018-02-23] MEDS ORDERED: *HR* FentaNYL (PF) 250 MCG/5 ML VIAL ONE (09:42)
--- NOTE | 2018-02-23 09:53 | Event Note ---
Date of Encounter: 02/23/18 Time of Encounter: 09:53 Patient not seen, gone to the OR prior to eval. Thoracic surgery will be in charge of patient's care
[2018-02-23] MEDS ORDERED: Famotidine 20 MG/2 ML VIAL ONE (10:04)
[2018-02-23 10:31] LABS: ABG Base Excess 0 mEq/L (-2 to 3); ABG Chloride 104 mEq/L (98-107); ABG Glucose 192 mg/dL (60-95); ABG HCO3 24 mEq/L (21-27); ABG Ionized Calcium 1.14 mmol/L (1.15-1.35); ABG Oxygen Saturation 100 % (95-98); ABG PCO2 38 mmHg (35-45); ABG PH 7.41 pH Units (7.32-7.45); ABG PO2 197 mmHg (85-104); ABG TCO2 25 mEq/L (20-26)
[2018-02-23 11:00] LABS: ABG Base Excess 1 mEq/L (-2 to 3); ABG Chloride 98 mEq/L (98-107); ABG Glucose 259 mg/dL (60-95); ABG HCO3 25 mEq/L (21-27); ABG Oxygen Saturation 100 % (95-98); ABG PCO2 40 mmHg (35-45); ABG PH 7.42 pH Units (7.32-7.45); ABG PO2 583 mmHg (85-104); ABG TCO2 27 mEq/L (20-26)
[2018-02-23 11:22] LABS: ABG Base Excess 5 mEq/L (-2 to 3); ABG Chloride 97 mEq/L (98-107); ABG Glucose 166 mg/dL (60-95); ABG HCO3 29 mEq/L (21-27); ABG Ionized Calcium 0.96 mmol/L (1.15-1.35); ABG Oxygen Saturation 100 % (95-98); ABG PCO2 40 mmHg (35-45); ABG PH 7.46 pH Units (7.32-7.45); ABG PO2 560 mmHg (85-104); ABG TCO2 30 mEq/L (20-26)
[2018-02-23] MEDS ORDERED: Protamine Sulfate 250 MG/25 ML VIAL IVP ONE (11:31)
[2018-02-23 11:49] LABS: ABG Base Excess 4 mEq/L (-2 to 3); ABG Chloride 95 mEq/L (98-107); ABG Glucose 99 mg/dL (60-95); ABG HCO3 29 mEq/L (21-27); ABG Ionized Calcium 1.01 mmol/L (1.15-1.35); ABG Oxygen Saturation 100 % (95-98); ABG PCO2 45 mmHg (35-45); ABG PH 7.42 pH Units (7.32-7.45); ABG PO2 608 mmHg (85-104); ABG TCO2 30 mEq/L (20-26)
[2018-02-23 12:21] LABS: ABG Base Excess 3 mEq/L (-2 to 3); ABG Chloride 99 mEq/L (98-107); ABG Glucose 64 mg/dL (60-95); ABG HCO3 27 mEq/L (21-27); ABG Ionized Calcium 0.91 mmol/L (1.15-1.35); ABG Oxygen Saturation 100 % (95-98); ABG PCO2 38 mmHg (35-45); ABG PH 7.46 pH Units (7.32-7.45); ABG PO2 242 mmHg (85-104); ABG TCO2 28 mEq/L (20-26)
[2018-02-23] MEDS ORDERED: *HR* Dextrose 50 % in Water (Syg) 50 ML SYRINGE ONE (12:21)
[2018-02-23] MEDS ORDERED: *HR* Promethazine 25 MG/ML VIAL IVP PRN (12:41)
[2018-02-23] MEDS ORDERED: Naloxone 0.4 MG/ML INJ IVP PRN (12:41)
[2018-02-23] MEDS ORDERED: Potassium Chloride 40 MEQ/200 ML BAG IVPB PRN (12:41)
[2018-02-23] MEDS ORDERED: *HR* Dextrose 50 % in Water (Syg) 50 ML SYRINGE IVP PRN (12:41)
[2018-02-23] MEDS ORDERED: Insulin Regular, Human 100 UNIT/ML IV PRN (12:41)
[2018-02-23] MEDS ORDERED: Acetaminophen 325 MG TABLET PO PRN (12:41)
[2018-02-23] MEDS ORDERED: *HR* FentaNYL (PF) 100 MCG/2 ML VIAL IVP PRN (12:41)
[2018-02-23] MEDS ORDERED: niCARdipine 40 MG/200 ML MLS IVC ONE (12:53)
[2018-02-23] MEDS: Nitroglycerin 25 MG/250 ML INFUS..BTL IVC SCH ×3 (13:22→23:07)
--- NOTE | 2018-02-23 13:28 | Anesthesia Procedures ---
Date of Encounter: 02/23/18 Time of Encounter: 08:40 Procedures: Anesthesia - Arterial Line Consent obtained: written consent Time out performed: Yes Sedation: Versed (mg): 2 Sedation: Fentanyl (mcg): 100 Local Anesthetic: Lidocaine 1% Size (Gauge): 20 Length (inches): 1 3/4 Technique Used: sterile prep, direct puncture technique Post-Procedure: line taped into place, dry sterile dressing placed Patient tolerated procedure: well Complications: none Site: Radial L Vitals: see anesthesia record - Central Line Placement Right IJ Consent obtained: written consent Time out performed: Yes Patient placed on monitor/pulse ox: Yes MD prep: mask, gown, gloves, other Central line prep: Chlorhexidine scrub Local Anesthetic Used: Other (general anesthesia) Ultrasound used for placement: Yes Technique: Seldinger Lumen Inserted: single Size / Length: 9 Fr / 10 cm Post procedure: sutured in place, good blood return, all ports aspirated, flushed, capped, sterile dressing applied Patient tolerated procedure: well Complications: none Vitals: see anesthesia record Comments: PAC inserted using pressure waveform analysis. Secured at 45 cm
[2018-02-23 13:30] LABS: ABG Base Excess 4 mEq/L (-2 to 3); ABG HCO3 28 mEq/L (21-27); ABG Oxygen Saturation 98 % (95-98); ABG PCO2 43 mmHg (35-45); ABG PH 7.42 pH Units (7.32-7.45); ABG PO2 94 mmHg (85-104); ABG TCO2 30 mEq/L (20-26); Blood Gas Modality VC; Blood Gas PEEP 5 cm H2O; Blood Gas Respiration Rate 10; Blood Gas VT 600 cc
[2018-02-23 13:32] LABS: Basophils % 0.2 %; Eosinophils # 0.1 K/mcL (0.0-0.6); Eosinophils % 0.7 %; Hematocrit 32.4 % (35.3-44.9); Hemoglobin 11.4 g/dL (11.5-15.4); Immature Granulocytes % 0.6 % (0-4); Lymphocytes # 2.6 K/mcL (0.6-4.6); Lymphocytes % 14.4 %; Mean Corpuscular HGB Conc 35.2 g/dL (31.6-35.5); Mean Corpuscular Hemoglobin 29.3 pg (28.0-33.3); Mean Corpuscular Volume 83.3 fL (83.0-100.0); Mean Platelet Volume 10.8 fL (9.4-12.4); Monocytes # 1.3 K/mcL (0.0-1.3); Neutrophils # 13.7 K/mcL (1.6-8.9); Platelet Count 230 K/mcL (140-400); Red Blood Count 3.89 M/mcL (3.82-4.97); Red Cell Distribution Width 12.5 % (11.5-14.5); Segmented Neutrophils % 77.1 %
[2018-02-23] MEDS: niCARdipine 40 MG/200 ML MLS IVC SCH ×3 (13:35→23:09)
--- NOTE | 2018-02-23 13:42 | Operative Note ---
Date of procedure: 02/23/18 Was there an purchasing assistant present: Yes Anatomy And Physiology Instructor: Michael Benavides Estimated blood loss (cc): 750 Specimen: none Condition: critical Disposition: ICU Procedure in Detail: Pre-preoperative diagnosis. Coronary artery disease. Postoperative diagnosis. Same. Procedures. Coronary artery bypass grafting 3 with the left internal mammary artery to the LAD and saphenous vein grafts to the obtuse marginal branch of the circumflex and posterior descending branch of the right. Surgeon. Dr. Abdulkadir Munoz. The patient is a 67-year-old female with history of diabetes, hypercholesterolemia and hypertension. She presented with a myocardial infarction with positive enzymes. Cardiac catheterization revealed severe coronary artery disease with a 99% proximal LAD lesion and she was referred for semi-emergent coronary artery bypass grafting. She was brought to the operating room where she was prepped and draped in standard fashion. The left greater saphenous vein was harvested from below the left knee to the left groin. This was done through 2 small incisions using the scope. These incisions were subsequently closed with a deep layer of 0 Vicryl and a 2-0 Vicryl subcuticular stitch. Standard median sternotomy was performed. The left internal mammary artery retractor was inserted in the left internal mammary artery was harvested in standard fashion using the Bovie electrocoagulation. The mammary retractor was removed and the standard sternal it training specialist was inserted. Pericardium was opened in the midline and suspended with 2-0 silk stay sutures. Double purse string of 20 S[place] was placed in the aorta for the aortic cannulation site. A pursestring of 20 Surg[place] was placed in the right atrial appendage for venous uptake. The patient was heparinized and the aorta was cannulated without difficulty. 2 stage venous uptake cannula was inserted through the right atrial appendage. A pursestring of 3-0 silk was placed in the aorta and the cardioplegia needle was inserted through here. This was also used as an active and passive aortic vent. The patient was placed on cardiopulmonary bypass and cooled to 34 degrees. At this point, the aorta was crossclamped and a liter of antegrade cardioplegia was given. Topical cooling with iced saline slush was also used. Attention was first turned to the right coronary artery. The distal third of the posterior descending artery was diffusely diseased and too small for grafting. We selected the proximal third and it was dissected free with the [place] blade and opened with a [place] blade and the Frederick scissors. It had a lumen of 1-1/2 mm with mild diffuse disease. A standard end-to-side anastomosis was constructed using the saphenous vein and a 7-0 Prolene. When this is completed, the patient received an additional dose of antegrade cardioplegia. Attention was turned to the circumflex. The highest obtuse marginal branch was dissected free with the [place] blade and opened with the [place] blade and a Frederick scissors. This had a lumen of 1-1/2 mm with moderate diffuse disease. A standard end-to-side anastomosis was constructed using the saphenous vein and a 7-0 Prolene. When this is completed, the patient received the last dose of antegrade cardioplegia. Attention was turned to the LAD. This was found to be intramyocardial. Dissection was continued deep to the LAD and was opened with the [place] blade and the Frederick scissors. It had a lumen of 1-1-1/2 mm and had diffuse disease. Mammary pedicle was harvested. Tonsil clamp was placed distally and it was divided with the Metzenbaum scissors. Distal end was tied off with a 2-0 silk suture. Proximal end was trimmed and brought into the wound. A standard end-to-side anastomosis was constructed using the mammary artery and a 7-0 Prolene. When this is completed, the previously placed bulldog clamp was removed and the hemostasis was good. Pedicle was tacked to surface the heart using 2 interrupted 5-0 [address] sutures[address] I did place some FloSeal around the ROSSI distal anastomosis. Cross-clamp was removed and rewarming was begun. Total cross-clamp time was 53 minutes. A side-biting clamp was placed on the aorta and the cardioplegia needle was removed. 2 holes were made in the aorta using the [place] blade and the 4.4 mm aortic punch. 2 proximal anastomoses were constructed in standard fashion using the saphenous veins and 5-0 Prolene's. When this is completed, the side-biting clamp was removed. Grafts were de-aired using #25-gauge needle and the previously placed bulldog clamps removed. Distal anastomoses were inspected and found to be hemostatic. Proximal anastomoses were marked with the marker from a Ray-Fernanda sponge. A pair of ventricular pacing wires was left. A 32 right angle chest tube to the left pleural space. A 32 right angle chest tube to the pericardial well. A 42 mediastinal chest tube. The patient was weaned from bypass and decannulated. Protamine was given. Hemostasis was good and the hemodynamics were good. Pericardium was loosely closed with interrupted 2-0 silk sutures. Sternum was closed with #7 sternal wires in simple and [id number] fashion. We did use platelet rich and platelet poor plasma on the sternum and tissues above the sternum. Fascia was run with #1 Vicryl. Subcutaneous tissues with a 2-0 Vicryl. Skin was closed with a 3-0 Vicryl subcuticular stitch. The patient tolerated the procedure well and was returned intensive care unit in satisfactory and stable condition. Total bypass time 89 minutes. Total cross- clamp time 53 minutes. He been cooled to 34 degrees.
[2018-02-23 13:43] LABS: INR 1.2
[2018-02-23 13:46] LABS: Activated Partial Thrombo Time 31.7 Seconds (26.0-36.0); BUN/Creatinine Ratio 14 (6-26); Blood Urea Nitrogen 10 mg/dL (8-23); Calcium 8.5 mg/dL (8.6-10.3); Carbon Dioxide 27 mEq/L (23-29); Chloride 104 mEq/L (98-107); Glucose 89 mg/dL (70-105); Magnesium 2.8 mg/dL (1.6-2.6); Osmolality,Calculated 283 (280-300); Potassium 3.8 mEq/L (3.5-5.1); Sodium 137 mEq/L (136-145); eGFR For African Americans > 60 (> 60); eGFR For Non-African Americans > 60 (> 60)
[2018-02-23 13:48] LABS: Prothrombin Time 13.5 Seconds (9.4-12.1)
--- NOTE | 2018-02-23 14:02 | Anesthesia Evaluation Post Op ---
Date of Encounter: 02/23/18 Time of Encounter: 14:00 - Lungs Lungs: Clear Ascult./Percussion - Airway Airway: Intubated - Cardiovascular Regular Rate - Mental Status Mental Status: Sedated - Pain Pain Scale used: Celina (Faces) - Nausea Vomiting Nausea Vomiting: Unable to assess - Hydration Hydration: NPO - Discharge Attestation: patient remains in ICU in stable condition
[2018-02-23] MEDS: Heparin 15,000 UNIT in 0.9 % Sodium Chloride 500 ML IV SCH ×2 (14:07→23:09)
[2018-02-23] MEDS: Heparin 25,000 UNIT/500 ML D5W 25,000 UNIT/500 ML BAG IVC SCH (14:07)
[2018-02-23] MEDS: Sulfamethoxazole/Trimeth DS 1 EACH TABLET PO SCH ×2 (14:08→20:04)
[2018-02-23] MEDS: 0.9 % Sodium Chloride w KCl 20 MEQ/1,000 ML MLS IVC SCH ×2 (14:10→18:10)
[2018-02-23] MEDS: *HR* OxyCODONE/APAP 5/325 TABLET PO PRN ×2 (14:11→20:02)
[2018-02-23 16:42] LABS: ABG Base Excess 2 mEq/L (-2 to 3); ABG HCO3 27 mEq/L (21-27); ABG Oxygen Saturation 95 % (95-98); ABG PCO2 46 mmHg (35-45); ABG PH 7.38 pH Units (7.32-7.45); ABG PO2 80 mmHg (85-104); ABG TCO2 29 mEq/L (20-26); Blood Gas Modality VC; Blood Gas PEEP 5 cm H2O; Blood Gas Respiration Rate 12; Blood Gas VT 500 cc
[2018-02-23] MEDS: Norepinephrine 4 MG in D5% in Water 250 ML IVC SCH (18:19)
[2018-02-23] MEDS: Insulin Human Regular 100 UNIT in 0.9 % Sodium Chloride 100 ML IVC SCH (18:19)
[2018-02-23 20:47] LABS: ABG Base Excess 3 mEq/L (-2 to 3); ABG HCO3 28 mEq/L (21-27); ABG Oxygen Saturation 95 % (95-98); ABG PCO2 43 mmHg (35-45); ABG PH 7.42 pH Units (7.32-7.45); ABG PO2 75 mmHg (85-104); ABG TCO2 29 mEq/L (20-26); Blood Gas Modality PRVC; Blood Gas PEEP 5 cm H2O; Blood Gas Respiration Rate 12; Blood Gas VT 500 cc
[2018-02-23 21:25] LABS: ABG Base Excess 3 mEq/L (-2 to 3); ABG HCO3 28 mEq/L (21-27); ABG Oxygen Saturation 95 % (95-98); ABG PCO2 44 mmHg (35-45); ABG PH 7.42 pH Units (7.32-7.45); ABG PO2 76 mmHg (85-104); ABG TCO2 30 mEq/L (20-26); Blood Gas Modality PRVC; Blood Gas PEEP 5 cm H2O; Blood Gas Pressure Support 5 cm H2O
[2018-02-23] MEDS ORDERED: Insulin LISPRO 300 UNITS/3 ML VIAL SQ ONE (22:29)
[2018-02-23 22:55] LABS: ABG Base Excess 3 mEq/L (-2 to 3); ABG HCO3 28 mEq/L (21-27); ABG Oxygen Saturation 94 % (95-98); ABG PCO2 45 mmHg (35-45); ABG PH 7.41 pH Units (7.32-7.45); ABG PO2 71 mmHg (85-104); ABG TCO2 30 mEq/L (20-26)
[2018-02-24] MEDS: 0.9 % Sodium Chloride w KCl 20 MEQ/1,000 ML MLS IVC SCH (03:05)
[2018-02-24 03:14] LABS: Basophils % 0.1 %; Hematocrit 28.3 % (35.3-44.9); Immature Granulocytes % 0.3 % (0-4); Lymphocytes # 1.7 K/mcL (0.6-4.6); Lymphocytes % 13.1 %; Mean Corpuscular HGB Conc 33.9 g/dL (31.6-35.5); Mean Corpuscular Hemoglobin 28.7 pg (28.0-33.3); Mean Corpuscular Volume 84.7 fL (83.0-100.0); Mean Platelet Volume 11.1 fL (9.4-12.4); Monocytes % 7.3 %; Neutrophils # 10.2 K/mcL (1.6-8.9); Platelet Count 205 K/mcL (140-400); Red Blood Count 3.34 M/mcL (3.82-4.97); Red Cell Distribution Width 13.1 % (11.5-14.5); Segmented Neutrophils % 79.2 %
[2018-02-24 03:15] LABS: Hemoglobin 9.6 g/dL (11.5-15.4); Monocytes # 0.9 K/mcL (0.0-1.3)
[2018-02-24 03:18] LABS: INR 1.2; Prothrombin Time 12.6 Seconds (9.4-12.1)
[2018-02-24 03:20] LABS: Activated Partial Thrombo Time 26.9 Seconds (26.0-36.0)
[2018-02-24 03:30] LABS: BUN/Creatinine Ratio 14 (6-26); Blood Urea Nitrogen 11 mg/dL (8-23); Carbon Dioxide 25 mEq/L (23-29); Chloride 109 mEq/L (98-107); Glucose 143 mg/dL (70-105); Magnesium 2.1 mg/dL (1.6-2.6); Osmolality,Calculated 292 (280-300); Potassium 4.5 mEq/L (3.5-5.1); Sodium 140 mEq/L (136-145); eGFR For African Americans > 60 (> 60); eGFR For Non-African Americans > 60 (> 60)
--- NOTE | 2018-02-24 07:03 | Cardiothoracic Progress Note ---
Date of Encounter: 02/24/18 Time of Encounter: 07:02 - Assessment and plan (1) NSTEMI (non-ST elevated myocardial infarction) Current Visit: Yes Status: Acute We will discontinue the patient's [place]-Sun catheter, IV fluids, arterial line and Leos catheter. We will restart her home blood pressure medications. We will transfer her to the floor when a bed becomes available. - Subjective Interval history: The patient is extubated and having very little pain. Vital Signs, Last 4 Hours Temp Pulse Resp BP Pulse Ox 02/24/18 06:05 99.2 F 94 19 126/47 94 02/24/18 05:00 99.5 F 93 16 123/47 94 02/24/18 04:00 99.2 F 89 16 119/54 92 02/24/18 03:15 14 93 02/24/18 03:04 99.3 F 89 17 114/66 93 Oxgyen Flow Rate Oxygen Flow Rate (LPM) 1 Clinical Data, last 8 Hours Output, Chest Tube Drainage 5 Amount [Mediastinal #1] Output, Chest Tube Drainage 10 Amount [Mediastinal #1] Output, Chest Tube Drainage 5 Amount [Mediastinal #1] Output, Chest Tube Drainage 0 Amount [Mediastinal #1] Output, Chest Tube Drainage 5 Amount [Mediastinal #1] Output, Chest Tube Drainage 5 Amount [Mediastinal #1] Output, Chest Tube Drainage 10 Amount [Mediastinal #1] Output, Chest Tube Drainage 10 Amount [Mediastinal #1] Output, Chest Tube Drainage 5 Amount [Mediastinal #1] Output, Chest Tube Drainage 5 Amount [Mediastinal #2] Output, Chest Tube Drainage 15 Amount [Mediastinal #2] Output, Chest Tube Drainage 0 Amount [Mediastinal #2] Output, Chest Tube Drainage 5 Amount [Mediastinal #2] Output, Chest Tube Drainage 0 Amount [Mediastinal #2] Output, Chest Tube Drainage 0 Amount [Mediastinal #2] Output, Chest Tube Drainage 0 Amount [Mediastinal #2] Output, Chest Tube Drainage 2 Amount [Mediastinal #3] Output, Chest Tube Drainage 10 Amount [Mediastinal #3] Output, Chest Tube Drainage 10 Amount [Mediastinal #3] Output, Chest Tube Drainage 0 Amount [Mediastinal #3] Output, Chest Tube Drainage 5 Amount [Mediastinal #3] Output, Chest Tube Drainage 5 Amount [Mediastinal #3] Output, Chest Tube Drainage 5 Amount [Mediastinal #3] Output, Chest Tube Drainage 5 Amount [Mediastinal #3] Output, Chest Tube Drainage 10 Amount [Mediastinal #3] Weight 02/22/18 02/23/18 02/24/18 23:59 23:59 23:59 Weight 102.512 kg Lungs are clear to percussion and auscultation. Heart is in a normal sinus rhythm. All incisions are healing well without signs of infection and the sternum is stable. Chest tube drainage is minimal and there is no air leak. Chest tubes and pacing wires were removed. - Labs 02/24/18 03:00 02/24/18 03:00 Lab Results, Last 24 hours 02/23/18 02/23/18 02/23/18 13:22 13:22 13:22 WBC 17.8 H D Hgb 11.4 L Hct 32.4 L Plt Count 230 INR 1.2 APTT 31.7 D Sodium 137 Potassium 3.8 Chloride 104 Carbon Dioxide 27 BUN 10 Creatinine 0.70 Glucose 89 Calcium 8.5 L Magnesium 2.8 H 02/24/18 02/24/18 02/24/18 03:00 03:00 03:00 WBC 12.9 H Hgb 9.6 L D Hct 28.3 L Plt Count 205 INR 1.2 APTT 26.9 Sodium 140 Potassium 4.5 Chloride 109 H Carbon Dioxide 25 BUN 11 Creatinine 0.79 Glucose 143 H Calcium 8.0 L Magnesium 2.1 - VTE Documentation of Mechanical Device: Graduated compression elastic hosiery Consult Discharge Plan - Plan Referrals: La Kenny [Primary Care Provider] -
[2018-02-24] MEDS: Chlorhexidine Rinse 15 ML MOUTHWASH MM SCH ×2 (08:17→21:58)
[2018-02-24] MEDS: Furosemide 20 MG TABLET PO SCH (08:18)
[2018-02-24] MEDS: Sulfamethoxazole/Trimeth DS 1 EACH TABLET PO SCH ×2 (08:18→21:57)
[2018-02-24] MEDS: Aspirin 81 MG TAB.CHEW PO SCH (08:18)
[2018-02-24] MEDS: amLODIPine 5 MG TABLET PO SCH (08:18)
[2018-02-24] MEDS: *HR* OxyCODONE/APAP 5/325 TABLET PO PRN ×4 (09:25→21:57)
--- NOTE | 2018-02-24 09:38 | Electrocardiograph Report ---
[place] [address] Test Date: 2018-02-22 Pat Name: Randi Pinedo Department: 104 Room: [facility] Gender: F Registered Nurse First Assistant: : 1950 Requested By: Zhou Sosa Order Number: [id number] Reading MD: Modesto Knapp Measurements Intervals [place] Rate: 88 P: 36 [place]: 177 QRS: 4 QRSD: 78 T: 69 QT: 356 QTc: 401 Interpretive Statements SINUS RHYTHM ANTEROSEPTAL MYOCARDIAL INFARCTION, OF INDETERMINATE AGE Electronically Signed On 02-24-2018 9:37:17 EDT by Modesto Knapp
--- NOTE | 2018-02-24 09:57 | Electrocardiograph Report ---
[address] [place] [address] Test Date: 2018-02-22 Pat Name: Randi Pinedo Department: 111 Room: [facility] Gender: F Refrigerator Glazier: MICHAEL : 1950 Requested By: Luis Cho Order Number: [id number] Reading MD: Basil Gresham Measurements Intervals [place] Rate: 77 P: 20 [place]: 185 QRS: 29 QRSD: 81 T: 61 QT: 390 QTc: 421 Interpretive Statements SINUS RHYTHM ANTEROSEPTAL MYOCARDIAL INFARCTION, OF INDETERMINATE AGE Electronically Signed On 02-24-2018 9:55:59 EDT by Basil Gresham
--- NOTE | 2018-02-24 10:12 | Electrocardiograph Report ---
[address] [address] Test Date: 2018-02-23 Pat Name: Randi Pinedo Department: 109 Room: [facility] Gender: Office Machines Wirer: : 1950 Requested By: Abdulkadir Munoz Order Number: [id number] Reading MD: Basil Gresham Measurements Intervals [place] Rate: 76 P: 28 [place]: 193 QRS: 49 QRSD: 93 T: 69 QT: 407 QTc: 437 Interpretive Statements SINUS RHYTHM LOW QRS VOLTAGE IN EXTREMITY LEADS Electronically Signed On 02-24-2018 10:11:10 EDT by Basil Gresham
[2018-02-24] MEDS: Insulin Human Regular 100 UNIT in 0.9 % Sodium Chloride 100 ML IVC SCH (13:41)
[2018-02-24] MEDS: Norepinephrine 4 MG in D5% in Water 250 ML IVC SCH ×2 (13:41→15:12)
[2018-02-24] MEDS: niCARdipine 40 MG/200 ML MLS IVC SCH (13:41)
[2018-02-24] MEDS: Nitroglycerin 25 MG/250 ML INFUS..BTL IVC SCH (13:42)
[2018-02-24] MEDS ORDERED: D5% in Water 1,000 ML IVC PRN (13:56)
[2018-02-24] MEDS ORDERED: Dextrose Gel 15 GM/37.5 ML TUBE PO PRN ×2 (13:56)
[2018-02-24] MEDS ORDERED: *HR* Dextrose 50 % in Water (Syg) 50 ML SYRINGE IVP PRN (13:56)
[2018-02-24] MEDS ORDERED: Naloxone 0.4 MG/ML INJ IVP PRN (13:56)
[2018-02-24] MEDS ORDERED: Nitroglycerin 0.4 MG TAB.SUBL SL PRN (13:56)
[2018-02-24] MEDS ORDERED: Ondansetron 4 MG/2 ML VIAL IVP PRN (13:56)
[2018-02-24] MEDS: Insulin LISPRO 300 UNITS/3 ML VIAL SQ SCH ×3 (15:12→22:14)
[2018-02-24] MEDS: Acetaminophen 325 MG TABLET PO PRN (20:00)
[2018-02-24] MEDS: Insulin DETEMIR 100 UNIT/ML X5UNITS SQ SCH (22:18)
[2018-02-25 04:04] LABS: Basophils % 0.2 %; Eosinophils # 0.1 K/mcL (0.0-0.6); Eosinophils % 1.1 %; Hematocrit 27.7 % (35.3-44.9); Immature Granulocytes % 0.5 % (0-4); Lymphocytes # 3.1 K/mcL (0.6-4.6); Mean Corpuscular HGB Conc 33.6 g/dL (31.6-35.5); Mean Corpuscular Hemoglobin 29.5 pg (28.0-33.3); Mean Corpuscular Volume 87.9 fL (83.0-100.0); Mean Platelet Volume 11.6 fL (9.4-12.4); Monocytes # 1.1 K/mcL (0.0-1.3); Monocytes % 8.7 %; Neutrophils # 8.5 K/mcL (1.6-8.9); Platelet Count 197 K/mcL (140-400); Red Blood Count 3.15 M/mcL (3.82-4.97); Red Cell Distribution Width 13.3 % (11.5-14.5); Segmented Neutrophils % 65.5 %
[2018-02-25 04:05] LABS: Hemoglobin 9.3 g/dL (11.5-15.4)
[2018-02-25 04:24] LABS: BUN/Creatinine Ratio 17 (6-26); Blood Urea Nitrogen 16 mg/dL (8-23); Calcium 8.1 mg/dL (8.6-10.3); Carbon Dioxide 24 mEq/L (23-29); Chloride 103 mEq/L (98-107); Glucose 205 mg/dL (70-105); Osmolality,Calculated 285 (280-300); Potassium 4.6 mEq/L (3.5-5.1); Sodium 134 mEq/L (136-145); eGFR For African Americans > 60 (> 60); eGFR For Non-African Americans 59 (> 60)
--- NOTE | 2018-02-25 07:33 | Cardiothoracic Progress Note ---
Date of Encounter: 02/25/18 Time of Encounter: 07:31 - Assessment and plan (1) NSTEMI (non-ST elevated myocardial infarction) Current Visit: Yes Status: Acute The patient is doing well. Hopefully, she can be transferred to the floor soon when a bed becomes available. - Subjective Interval history: The patient has mild postoperative pain. No other complaints. Vital Signs, Last 4 Hours Temp Pulse Resp BP Pulse Ox 02/25/18 06:00 78 16 92 02/25/18 04:00 98.3 F 76 16 134/67 91 02/25/18 03:46 16 91 Oxgyen Flow Rate Oxygen Flow Rate (LPM) 2.5 Weight 02/23/18 02/24/18 02/25/18 23:59 23:59 23:59 Weight 102.512 kg 105.7 kg Lungs are clear to percussion and auscultation. Heart is in a normal sinus rhythm. All incisions are healing well without signs of infection and the sternum is stable. - Labs 02/25/18 03:50 02/25/18 03:50 Lab Results, Last 24 hours 02/25/18 02/25/18 03:50 03:50 WBC 12.9 H Hgb 9.3 L Hct 27.7 L Plt Count 197 Sodium 134 L Potassium 4.6 Chloride 103 Carbon Dioxide 24 BUN 16 Creatinine 0.95 Glucose 205 H Calcium 8.1 L - VTE Documentation of Mechanical Device: Graduated compression elastic hosiery Consult Discharge Plan - Plan Referrals: La Kenny [Primary Care Provider] -
[2018-02-25] MEDS: Sulfamethoxazole/Trimeth DS 1 EACH TABLET PO SCH ×2 (07:53→21:28)
[2018-02-25] MEDS: Aspirin 81 MG TAB.CHEW PO SCH (07:53)
[2018-02-25] MEDS: amLODIPine 5 MG TABLET PO SCH (07:53)
[2018-02-25] MEDS: *HR* OxyCODONE/APAP 5/325 TABLET PO PRN ×3 (07:54→21:28)
[2018-02-25] MEDS: Chlorhexidine Rinse 15 ML MOUTHWASH MM SCH ×2 (07:54→21:27)
[2018-02-25] MEDS: Insulin LISPRO 300 UNITS/3 ML VIAL SQ SCH ×4 (07:56→21:31)
[2018-02-25] MEDS ORDERED: Furosemide 20 MG TABLET PO SCH (09:00)
[2018-02-25] MEDS: Norepinephrine 4 MG in D5% in Water 250 ML IVC SCH (14:18)
[2018-02-25] MEDS: Insulin DETEMIR 100 UNIT/ML X5UNITS SQ SCH (21:28)
[2018-02-26] MEDS: *HR* OxyCODONE/APAP 5/325 TABLET PO PRN ×4 (02:38→20:22)
[2018-02-26 04:09] LABS: Basophils % 0.2 %; Eosinophils # 0.1 K/mcL (0.0-0.6); Eosinophils % 1.2 %; Hematocrit 27.5 % (35.3-44.9); Hemoglobin 9.1 g/dL (11.5-15.4); Immature Platelets 6.1 % (1.1-6.1); Lymphocytes # 2.1 K/mcL (0.6-4.6); Lymphocytes % 20.2 %; Mean Corpuscular HGB Conc 33.1 g/dL (31.6-35.5); Mean Corpuscular Hemoglobin 29.2 pg (28.0-33.3); Mean Corpuscular Volume 88.1 fL (83.0-100.0); Mean Platelet Volume 11.4 fL (9.4-12.4); Monocytes # 0.9 K/mcL (0.0-1.3); Monocytes % 8.6 %; Neutrophils # 7.2 K/mcL (1.6-8.9); Nucleated Red Blood Cells 0.2 /100 WBC (0); Platelet Count 233 K/mcL (140-400); Red Blood Count 3.12 M/mcL (3.82-4.97); Segmented Neutrophils % 68.8 %
[2018-02-26 04:27] LABS: BUN/Creatinine Ratio 18 (6-26); Blood Urea Nitrogen 14 mg/dL (8-23); Calcium 8.3 mg/dL (8.6-10.3); Carbon Dioxide 25 mEq/L (23-29); Chloride 101 mEq/L (98-107); Glucose 169 mg/dL (70-105); Osmolality,Calculated 278 (280-300); Potassium 4.7 mEq/L (3.5-5.1); Sodium 132 mEq/L (136-145); eGFR For African Americans > 60 (> 60); eGFR For Non-African Americans > 60 (> 60)
--- NOTE | 2018-02-26 06:27 | Cardiothoracic Progress Note ---
Date of Encounter: 02/26/18 Time of Encounter: 06:25 - Assessment and plan (1) NSTEMI (non-ST elevated myocardial infarction) Current Visit: Yes Status: Acute We will begin to ambulate the patient. Hopefully, a bed will become available soon. She may be able to be discharged by Saturday or Saturday. - Subjective Interval history: The patient has been sitting in a chair, but has not been walking yet. Vital Signs, Last 4 Hours Temp Pulse Resp BP Pulse Ox 02/26/18 06:00 74 18 89 02/26/18 04:00 98.0 F 72 17 137/72 88 Oxgyen Flow Rate Oxygen Flow Rate (LPM) 6 Weight 02/24/18 02/25/18 02/26/18 23:59 23:59 23:59 Weight 105.7 kg 107.1 kg Lungs are clear to percussion and auscultation. Heart is in a normal sinus rhythm. All incisions are healing well without signs of infection and the sternum is stable. - Labs 02/26/18 03:50 02/26/18 03:50 Lab Results, Last 24 hours 02/26/18 02/26/18 03:50 03:50 WBC 10.5 Hgb 9.1 L Hct 27.5 L Plt Count 233 Sodium 132 L Potassium 4.7 Chloride 101 Carbon Dioxide 25 BUN 14 Creatinine 0.76 Glucose 169 H Calcium 8.3 L - VTE Documentation of Mechanical Device: Graduated compression elastic hosiery Consult Discharge Plan - Plan Referrals: La Kenny [Primary Care Provider] -
[2018-02-26] MEDS: amLODIPine 5 MG TABLET PO SCH (09:24)
[2018-02-26] MEDS: Sulfamethoxazole/Trimeth DS 1 EACH TABLET PO SCH ×2 (09:24→20:22)
[2018-02-26] MEDS: Aspirin 81 MG TAB.CHEW PO SCH (09:24)
[2018-02-26] MEDS: Chlorhexidine Rinse 15 ML MOUTHWASH MM SCH ×2 (09:24→20:21)
[2018-02-26] MEDS: Furosemide 20 MG/2 ML VIAL IVP SCH ×2 (09:24→17:01)
[2018-02-26] MEDS: Insulin LISPRO 300 UNITS/3 ML VIAL SQ SCH ×4 (09:26→20:27)
[2018-02-26] MEDS: Norepinephrine 4 MG in D5% in Water 250 ML IVC SCH (11:41)
[2018-02-26] MEDS: Insulin DETEMIR 100 UNIT/ML X5UNITS SQ SCH (20:25)
[2018-02-27] MEDS: *HR* OxyCODONE/APAP 5/325 TABLET PO PRN ×2 (03:57→21:20)
[2018-02-27 05:10] LABS: Basophils % 0.3 %; Eosinophils # 0.2 K/mcL (0.0-0.6); Hematocrit 28.1 % (35.3-44.9); Hemoglobin 9.2 g/dL (11.5-15.4); Immature Granulocytes % 0.8 % (0-4); Lymphocytes # 1.7 K/mcL (0.6-4.6); Lymphocytes % 18.2 %; Mean Corpuscular HGB Conc 32.7 g/dL (31.6-35.5); Mean Corpuscular Hemoglobin 28.8 pg (28.0-33.3); Mean Corpuscular Volume 87.8 fL (83.0-100.0); Mean Platelet Volume 10.7 fL (9.4-12.4); Monocytes # 0.8 K/mcL (0.0-1.3); Monocytes % 8.7 %; Neutrophils # 6.6 K/mcL (1.6-8.9); Nucleated Red Blood Cells 0.2 /100 WBC (0); Platelet Count 290 K/mcL (140-400); Red Cell Distribution Width 12.9 % (11.5-14.5)
[2018-02-27 05:24] LABS: BUN/Creatinine Ratio 22 (6-26); Blood Urea Nitrogen 17 mg/dL (8-23); Calcium 8.3 mg/dL (8.6-10.3); Carbon Dioxide 26 mEq/L (23-29); Chloride 101 mEq/L (98-107); Glucose 192 mg/dL (70-105); Osmolality,Calculated 281 (280-300); Potassium 4.8 mEq/L (3.5-5.1); Sodium 132 mEq/L (136-145); eGFR For African Americans > 60 (> 60); eGFR For Non-African Americans > 60 (> 60)
--- NOTE | 2018-02-27 07:21 | Cardiothoracic Progress Note ---
Date of Encounter: 02/27/18 Time of Encounter: 07:19 - Assessment and plan (1) NSTEMI (non-ST elevated myocardial infarction) Current Visit: Yes Status: Acute The patient is recovering well from her CABG3. She remained hemodynamically stable overnight. She is awaiting a 2N stepdown unit bed. The assessment and plan as outlined above was discussed with the patient and/or family members who expressed understanding and agreement. All questions were answered. - Subjective Procedure(s) Performed: POD#4 S/P CABG3 Interval history: The patient remained hemodynamically stable overnight. She is resting comfortably in her hospital bed and has no complaints. Vital Signs, Last 4 Hours Temp Pulse Resp BP Pulse Ox 02/27/18 04:00 97.8 F 67 16 149/71 93 02/27/18 03:44 14 91 Oxgyen Flow Rate Oxygen Flow Rate (LPM) 5 Clinical Data, last 8 Hours Output, Urine Amount 550 Weight 02/25/18 02/26/18 02/27/18 23:59 23:59 23:59 Weight 105.7 kg 107.1 kg 102.9 kg - Physical Examination General: Conversant, No Apparent Distress Neck: No JVD, Normal carotid pulses Cardiac: Reg Rate and Rhythm Incision: No signs of infection, Dry/intact dressing Sternum: Stable Lungs: Normal Breath Sounds, No Wheeze, Rales, Rhonchi Neuro: Alert and responsive, No focal deficits noted Vascular: Normal capillary refill Musculoskeletal: No Chest Wall Tenderness Extremities: No Clubbing, No Cyanosis, No Edema - Labs 02/27/18 00:01 02/27/18 00:01 Lab Results, Last 24 hours 02/27/18 02/27/18 00:01 00:01 WBC 9.5 Hgb 9.2 L Hct 28.1 L Plt Count 290 Sodium 132 L Potassium 4.8 Chloride 101 Carbon Dioxide 26 BUN 17 Creatinine 0.78 Glucose 192 H Calcium 8.3 L - Imaging Chest Xray: image reviewed (No pneumothorax. Bilateral atelectasis. Bilateral pleural effusions, after greater than right.) - VTE Documentation of Mechanical Device: Graduated compression elastic hosiery Consult Discharge Plan - Plan Referrals: La Kenny [Primary Care Provider] -
[2018-02-27] MEDS: Aspirin 81 MG TAB.CHEW PO SCH (08:48)
[2018-02-27] MEDS: amLODIPine 5 MG TABLET PO SCH (08:48)
[2018-02-27] MEDS: Sulfamethoxazole/Trimeth DS 1 EACH TABLET PO SCH ×2 (08:48→21:17)
[2018-02-27] MEDS: Chlorhexidine Rinse 15 ML MOUTHWASH MM SCH ×2 (08:49→21:17)
[2018-02-27] MEDS: Furosemide 20 MG/2 ML VIAL IVP SCH ×2 (08:49→16:32)
[2018-02-27] MEDS: *HR* Heparin 5,000 UNIT/ML VIAL SQ SCH ×2 (08:54→16:32)
[2018-02-27] MEDS: Insulin LISPRO 300 UNITS/3 ML VIAL SQ SCH ×4 (08:57→21:18)
[2018-02-27] MEDS: Norepinephrine 4 MG in D5% in Water 250 ML IVC SCH (12:12)
[2018-02-27] MEDS: Insulin DETEMIR 100 UNIT/ML X5UNITS SQ SCH (21:17)
[2018-02-28] MEDS: *HR* Heparin 5,000 UNIT/ML VIAL SQ SCH ×2 (06:05→17:56)
[2018-02-28] MEDS: Acetaminophen 325 MG TABLET PO PRN (06:09)
[2018-02-28] MEDS: Aspirin 81 MG TAB.CHEW PO SCH (07:49)
[2018-02-28] MEDS: amLODIPine 5 MG TABLET PO SCH (07:49)
[2018-02-28] MEDS: Sulfamethoxazole/Trimeth DS 1 EACH TABLET PO SCH ×2 (07:49→20:32)
[2018-02-28] MEDS: Chlorhexidine Rinse 15 ML MOUTHWASH MM SCH ×2 (07:49→20:32)
[2018-02-28] MEDS: Furosemide 20 MG/2 ML VIAL IVP SCH ×2 (07:49→17:56)
[2018-02-28] MEDS: Insulin LISPRO 300 UNITS/3 ML VIAL SQ SCH ×4 (07:50→20:31)
--- NOTE | 2018-02-28 08:17 | Cardiothoracic Progress Note ---
Date of Encounter: 02/28/18 Time of Encounter: 08:16 - Assessment and plan (1) NSTEMI (non-ST elevated myocardial infarction) Current Visit: Yes Status: Acute The patient is recovering well from her CABG3. She remained hemodynamically stable overnight. She is awaiting a 2N stepdown unit bed. She will ambulate in the ICU today. The assessment and plan as outlined above was discussed with the patient and/or family members who expressed understanding and agreement. All questions were answered. - Subjective Procedure(s) Performed: POD#5 S/P CABG3 Interval history: The patient remained hemodynamically stable overnight. She is resting comfortably in her hospital bed and has no complaints. Vital Signs, Last 4 Hours Temp Pulse Resp BP Pulse Ox 02/28/18 08:07 16 93 02/28/18 07:34 97.9 F 02/28/18 07:00 74 02/28/18 06:02 74 16 149/73 92 Oxgyen Flow Rate Oxygen Flow Rate (LPM) 2 Clinical Data, last 8 Hours Output, Urine Amount 0 Output, Urine Amount 375 Weight 02/26/18 02/27/18 02/28/18 23:59 23:59 23:59 Weight 107.1 kg 101 kg - Physical Examination General: Conversant, No Apparent Distress Neck: No JVD, Normal carotid pulses Cardiac: Reg Rate and Rhythm, Normal S1 and S2, No Murmur Incision: No signs of infection, Dry/intact dressing Lungs: Normal Breath Sounds, No Wheeze, Rales, Rhonchi Neuro: Alert and responsive, No focal deficits noted Vascular: Normal capillary refill Musculoskeletal: No Chest Wall Tenderness Extremities: No Clubbing, No Cyanosis, No Edema - Labs 02/27/18 00:01 02/27/18 00:01 - VTE Documentation of Mechanical Device: Graduated compression elastic hosiery Consult Discharge Plan - Plan Referrals: La Kenny [Primary Care Provider] -
[2018-02-28] MEDS: Insulin DETEMIR 100 UNIT/ML X5UNITS SQ SCH (20:31)
[2018-03-01] MEDS: *HR* Heparin 5,000 UNIT/ML VIAL SQ SCH (05:43)
[2018-03-01 07:24] VITALS: BP 159/75
--- NOTE | 2018-03-01 07:32 | Discharge Summary ---
Date of Encounter: 03/01/18 Time of Encounter: 07:24 - Discharge Diagnosis (1) NSTEMI (non-ST elevated myocardial infarction) Priority: Primary Status: Acute - Hospital Course Hospital course: Ms. Pinedo is a 68 year old type II diabetic, hypertensive lady with hypercholesterolemia who presented to [facility] emergency department on 02/22/2018 with a 3 to four-day history of substernal chest pain radiating to the upper extremities and jaw. She was found to have elevated troponin I levels and ECG changes consistent with a NSTEMI. She was taken urgently to the cardiac catheterization laboratory where she was found to have severe 3 vessel CAD and an LVEF 60%. In particular, the patient had a 99% proximal LAD lesion, a 99% mid LAD lesion, a 99% proximal D1 lesion, a 70% proximal OM1 lesion, and a 90% proximal right PDA lesion. She was recommended for urgent CABG. The following morning the patient underwent CABG 3. She remained in dynamically stable and her postoperative course was uncomplicated. The patient remained in the ICU for several days due to no available beds on the stepdown unit. She was ambulating in the ICU without difficulty. She was transferred to the stepdown unit on POD #5 and continued ambulating without difficulty. She was discharged home on POD #6. - Time Spent with Patient Total time spent providing and/or coordinating discharge services: - Discharge Medications Prescriptions: OxyCODONE/APAP 5/325 [Percocet 5/325 MG] 1 each PO Q4HR PRN 7 Days #42 tablet PRN Reason: Severe Pain Metoprolol [Lopressor] 50 mg PO BID #60 tablet Sulfamethoxazole/Trimeth DS [Bactrim Ds] 1 each PO BID #8 tablet Home Medications: Furosemide [Lasix] 20 mg PO DAILY 02/22/18 [History] Glyburide/Metformin HCl [Glyburide-Metformin 5-500 mg] 1 tab PO BID 02/22/18 [ History] Insulin Glargine [Lantus] 15 units SQ DAILY 02/22/18 [History] Insulin Glargine [Lantus] 30 units SQ HS 02/22/18 [History] Losartan [Cozaar] 100 mg PO DAILY 02/22/18 [History] Pioglitazone HCl [Actos] 45 mg PO DAILY 02/22/18 [History] Potassium Chloride [K-Tab ER] 10 meq PO BID 02/22/18 [History] Simvastatin [Zocor] 20 mg PO HS 02/22/18 [History] amLODIPine [Norvasc] 5 mg PO DAILY 02/22/18 [History] Aspirin 81 mg PO DAILY tab.chew 03/01/18 [Rx] Metoprolol [Lopressor] 50 mg PO BID #60 tablet 03/01/18 [Rx] OxyCODONE/APAP 5/325 [Percocet 5/325 MG] 1 each PO Q4HR PRN 7 Days #42 tablet [Rx] Sulfamethoxazole/Trimeth DS [Bactrim Ds] 1 each PO BID #8 tablet 03/01/18 [Rx] Allergies/Adverse Reactions: 3 Allergy/AdvReac Type Severity Reaction Status Date / Time No Known Allergies Allergy Verified 02/22/18 02:41 Date of admission: 02/22/18 15:38 Primary care physician: La Kenny Consults: 02/23/18 12:41 Consult to Cardiac Rehabilitation-Phase1 [CONS] Routine Comment: Reason for Consult: Post open heart Call Completed: Yes Consult to Veteran Appeals Reviewer [CONS] Routine Reason for SW Consult: open heart 02/25/18 10:54 Consult to Occupational Therapy [CONS] Routine Comment: Evaluate, develop and implement POC Reason for Consult: s/o ohs eval and treat Does patient have active BEDREST order?: No Is patient medically & hemodynamically stable?: Yes Consult to Physical Therapy [CONS] Routine Comment: Evaluate, develop and implement POC Reason for Consult: s/p OHS eval and treat Does patient have active BEDREST order?: No Is patient medically & hemodynamically stable?: Yes Procedure(s) Performed: 1. Cardiac catheterization performed 02/22/2018. 2. CABG 3 (ROSSI to LAD, SVG to OM1, SVG to PDA) performed 02/23/2018. 3. Endoscopic vein harvesting, greater saphenous vein from right lower extremity performed 02/23/2018. Discharging clinician: Lucho Helm Anticipated date of discharge: 03/01/18 Physical Examination Vital Signs, Last 4 Hours Temp Pulse Resp BP Pulse Ox 03/01/18 07:08 98.1 F 84 19 159/75 92 03/01/18 04:10 70 03/01/18 03:43 98.1 F 74 17 172/74 93 03/01/18 03:29 16 94 General: Conversant, No Apparent Distress HEENT: Atraumatic, Normocephaly, Trachea midline Neck: No JVD, Normal carotid pulses Cardiac: Reg Rate and Rhythm, Normal S1 and S2, No Murmur Lungs: Normal Breath Sounds, No Wheeze, Rales, Rhonchi Neuro: Alert and responsive, No focal deficits noted Vascular: Normal capillary refill Abdomen: Soft, Non-tender Skin: No rashes noted on visualized skin Extremities: No Clubbing, No Cyanosis, No Edema - Patient Status Disposition: Home, Self-Care Condition: Good Functional capacity at discharge: independent ambulation Overall status at discharge: patient is progressing back to baseline - Discharge Instructions Follow Up With: Basil Gresham MD [Partnered Physician] - (Office will call patient at home with follow up appointment) Abdulkadir Munoz MD [Partnered Physician] - 03/27/18 2:15 pm La Kenny [Primary Care Provider] - 03/05/18 3:15 pm [facility] Aspirin Cont/Prescribed at DC: Yes Beta Lew Cont/Prescribed at DC: Yes Statin Cont/Prescribed at DC: Yes YUN/ARB Cont/Prescribed at DC: Yes - VTE Documentation of Mechanical Device: Graduated compression elastic hosiery
[2018-03-01] MEDS: Chlorhexidine Rinse 15 ML MOUTHWASH MM SCH (08:22)
[2018-03-01] MEDS: amLODIPine 5 MG TABLET PO SCH (08:23)
[2018-03-01] MEDS: Aspirin 81 MG TAB.CHEW PO SCH (08:23)
[2018-03-01] MEDS: Sulfamethoxazole/Trimeth DS 1 EACH TABLET PO SCH (08:23)
[2018-03-01] MEDS: Furosemide 20 MG/2 ML VIAL IVP SCH (08:23)
[2018-03-01] MEDS: Insulin LISPRO 300 UNITS/3 ML VIAL SQ SCH (08:24)
== END 2018-03-01 10:55 | disposition home or self-care (01) | DRG 234 ==
LOC: 2NENU 02:32 → EMEROO 02:32 → 2NENU 06:38 → SUATTDRO 15:38 → ICNU 02-23 10:59 → 2NNU 02-28 14:08
PROVIDERS: ADMIT Family Medicine; ATTEND Internal Medicine